=== PATIENT | male | born 1965 | race African-American/Black ===

== ENCOUNTER 2024-10-20 13:54 | Emergency (ER) | payer BC, SELFPAY ==
--- NOTE | ~2024-10-20 | XR_ITS ---
EXAMINATION: XR chest 2V 10/20/2024 14:22 INDICATION: Shortness of breath. Chest pain. PROCEDURE: 2 view chest COMPARISON: No prior studies for comparison. FINDINGS: The lungs are clear. The cardiomediastinal silhouette is within normal limits. There are no pleural effusions. There is no pneumothorax suspected. IMPRESSION: 1: NO ACUTE CARDIOPULMONARY DISEASE. Reviewed, dictated and finalized at location B. [facility]
--- NOTE | 2024-10-20 13:56 | ECG_ITS ---
Test Date: 2024-10-20 14:01:33 Measurements Intervals [place] Rate: 88 P: 45 [place]: 153 QRS: 27 QRSD: 85 T: 45 QT: 346 QTc: 419 Interpretive Statements SINUS RHYTHM POSSIBLE LEFT ATRIAL ENLARGEMENT BASELINE ARTIFACT- I, II, III, AVR, AVL, AVF, V1-V6 BORDERLINE ECG No previous ECG available for comparison Electronically Signed On 10-20-2024 14:02:55 [employer] by Alton Craig D.O.
[2024-10-20 13:57] VITALS: BP 148/92; PULSE 91; RESP 16; TEMP 36.6; O2SAT 100
[2024-10-20 14:20] LABS: Basophils Percent Auto 0.6 % (0.2-1.2); Eosinophils Absolute Auto 0.2 K/mm3 (0-0.3); Eosinophils Percent Auto 2.6 % (0-4.4); Hematocrit 38.2 % (42.0-52.0); Hemoglobin 12.5 g/dL (14.0-18.0); Immature Granulocyte Absolute 0.02 K/mm3 (0.00-0.031); Immature Granulocyte Percent A 0.3 % (0-0.5); Lymphocytes Absolute Auto 2.62 K/mm3 (0.9-3.2); Mean Corpuscular HGB Conc 32.7 g/dl (32-36); Mean Corpuscular Hemoglobin 31.4 pg (26-34); Mean Platelet Volume 10.9 fl (7.4-10.4); Monocytes Absolute Auto 0.5 K/mm3 (0.1-0.6); Neutrophils Absolute Auto 3.6 K/mm3 (1.3-6.7); Neutrophils Percent Auto 51.5 % (45.5-73.1); Platelet Count Result 177 k/mm3 (150-375); Red Blood Count 3.98 M/mm3 (4.6-6.20); Red Cell Distribution Width 12.7 % (11.5-14.5); White Blood Count 6.9 K/mm3 (4.5-10.0)
[2024-10-20 14:33] LABS: INR 0.9; Prothrombin Time 12.7 Seconds (11.1-14.7)
[2024-10-20 14:34] LABS: Partial Thromboplastin Time 26.4 Seconds (22.3-36.8)
[2024-10-20 14:42] LABS: Troponin I < 0.012 ng/mL (0.000-0.034)
[2024-10-20 14:46] LABS: Alanine Aminotransferase 31 U/L (6-50); Albumin Level 4.3 g/dL (3.5-5.1); Alkaline Phosphatase 80 U/L (38-126); Anion Gap 10 mmol/L (4-12); Aspartate Amino Transferase 33 U/L (17-59); Blood Urea Nitrogen 14 mg/dL (9-20); Calcium 9.3 mg/dL (8.4-10.2); Carbon Dioxide 24 mmol/L (22-30); Chloride 103 mmol/L (98-107); Estimated CRCL calculation 81 ml/min; Estimated Glomerular Filt Rate > 60; Glucose 199 mg/dL (65-110); Lipase 494 U/L (23-300); Potassium 4.6 mmol/L (3.4-5.0); Sodium 137 mmol/L (137-145)
--- NOTE | 2024-10-20 15:15 | ED_ITS ---
HPI - SOB/Dyspnea General Chief Complaint: Shortness of Breath/Dyspnea <Katlin Lawrence PA-C - Last Filed: 10/21/24 09:08> Stated Complaint: SOB, CP <Katlin Lawrence PA-C - Last Filed: 10/21/24 09:08> Time Seen by Provider: 10/20/24 15:15 <Katlin Lawrence PA-C - Last Filed: 10/21/24 09:08> Focused HPI: This is a 59 year old male that presents to the ER for left sided chest pain. Ongoing over the last couple of months. Reports associated shortness of breath. Reports exertional dyspnea. Reports he was recently seen at [facility] for this. He has not followed up with his PCP. No known heart problems, he has never had a stress test. Reports family history of CAD. He is a smoker. History of DM, hypertension, hyperlipidemia. GENERAL: Well-appearing, well-nourished, and in no acute distress. HEAD: Normocephalic, atraumatic. CHEST: Clear to auscultation. ?No respiratory distress. HEART: Regular rate and rhythm.? NEURO: ?Alert and oriented x3. Patient screened in triage and initial orders placed.? ?Additional care and disposition to be based upon?diagnostic testing and treatment. <Katlin Lawrence PA-C - Last Filed: 10/21/24 09:08> Source: patient <Leodan Jo PA-C - Last Filed: 10/20/24 19:13> Mode of arrival: ambulatory <DANIEL Soriano Last Filed: 10/20/24 19:13> Limitations: no limitations <DANIEL Soriano Last Filed: 10/20/24 19:13> History of Present Illness HPI Narrative: Agree with MSE note above. Patient reports that the pain comes on as a twinge in the left side of the chest and seems associated with certain movements. He does notice it more when he is waking up in the morning and turns to 1 side or another. States that he does a lot of heavy lifting for his job and will sometimes noticed it while he lifts boxes. Otherwise he does not have any exertional chest pain, nausea, vomiting, syncope or sweats. Denies leg swelling, palpitations, cough or recent illness. <Leodan Jo PA-C - Last Filed: 10/20/24 19:13> Review of Systems 2 Review of Systems: All systems reviewed & are unremarkable except as noted in HPI and below <Katlin Lawrence PA-C - Last Filed: 10/21/24 09:08> PMFSH Past Medical History Medical History: Medical History (Updated 10/21/24 @ 09:07 by Katlin Lawrence PA-C) History of hyperlipidemia History of diabetes mellitus History of hypertension <Katlin Lawrence PA-C - Last Filed: 10/21/24 09:08> Social History Social History: Social History (Updated 10/21/24 @ 09:07 by Katlin Lawrence PA-C) Smoking status: Current every day smoker <Katlin Lawrence PA-C - Last Filed: 10/21/24 09:08> Exam 2 Narrative: GENERAL: Well-appearing, well-nourished, and in no acute distress. HEAD: Normocephalic, atraumatic. EYES: EOMI. CHEST: Clear to auscultation. No respiratory distress. No wheezes rales or rhonchi HEART: Regular rate and rhythm. No murmur heard. Normal peripheral pulses. EXTREMITIES: Normal range of motion. No edema. SKIN: Warm, dry, no rash. NEURO: No focal deficits. Alert and oriented x3. PSYCH: Normal mood and affect <Katlin Lawrence PA-C - Last Filed: 10/21/24 09:08> Course Vital Signs Vital signs: Vital Signs Temperature 97.8 F 10/20/24 13:57 Pulse Rate 91 10/20/24 13:57 Respiratory Rate 16 10/20/24 13:57 Blood Pressure 148/92 H 10/20/24 13:57 Pulse Oximetry 100 10/20/24 13:57 Oxygen Delivery Room Air 10/20/24 13:57 Temperature 97.8 F 10/20/24 13:57 Pulse Rate 79 10/20/24 18:44 Respiratory Rate 15 10/20/24 18:42 Blood Pressure 114/80 10/20/24 18:42 Pulse Oximetry 97 10/20/24 18:42 Oxygen Delivery Room Air 10/20/24 18:44 <Katlin Lawrence PA-C - Last Filed: 10/21/24 09:08> Vital Signs Temperature 97.8 F 10/20/24 13:57 Pulse Rate 91 10/20/24 13:57 Respiratory Rate 16 10/20/24 13:57 Blood Pressure 148/92 H 10/20/24 13:57 Pulse Oximetry 100 10/20/24 13:57 Oxygen Delivery Room Air 10/20/24 13:57 Temperature 97.8 F 10/20/24 13:57 Pulse Rate 79 10/20/24 18:44 Respiratory Rate 15 10/20/24 18:42 Blood Pressure 114/80 10/20/24 18:42 Pulse Oximetry 97 10/20/24 18:42 Oxygen Delivery Room Air 10/20/24 18:44 <Leodan Jo PA-C - Last Filed: 10/20/24 19:13> MDM - SOB/Dyspnea MDM Narrative Medical decision making narrative: This is a 59-year-old male who presents to the ED for chief complaint of chest pain and shortness of breath intermittent over the past month. EKG shows sinus rhythm with no acute ischemic findings. Serial troponins are negative. D-dimer is negative. Lab work overall unremarkable. Lipase is slightly elevated, however he has no correlating symptoms for pancreatitis. Chest x-ray shows no acute findings. Heart score is 3 based on medical history, however the story is very nonsuspicious for ACS. On re-evaluation. Patient is completely asymptomatic. His exam today is more consistent with musculoskeletal based chest pain. Low concern for acute cardiac or pulmonary cause of this chest pain. Encouraged close follow-up with PCP for outpatient chest pain evaluation. Patient will be discharged in stable condition. Supportive measures discussed and return precautions given. Patient is understanding and agreeable with plan for discharge with PCP follow-up. <Leodan Jo PA-C - Last Filed: 10/20/24 19:13> Lab Data Result diagrams: 10/20/24 14:05 10/20/24 14:05 <Katlin Lawrence PA-C - Last Filed: 10/21/24 09:08> Labs: Lab Results 10/20/24 10/20/24 10/20/24 Range/Units 14:05 17:24 18:15 WBC 6.9 (4.5-10.0) K/mm3 RBC 3.98 L (4.6-6.20) M/mm3 Hgb 12.5 L (14.0-18.0) g/dL Hct 38.2 L (42.0-52.0) % MCV 96.0 (80-100) fl MCH 31.4 (26-34) pg MCHC 32.7 (32-36) g/dl RDW 12.7 (11.5-14.5) % Plt Count 177 (150-375) k/mm3 MPV 10.9 H (7.4-10.4) fl Immature Gran % (Auto) 0.3 (0-0.5) % Neut % (Auto) 51.5 (45.5-73.1) % Lymph % (Auto) 38.0 (18.3-44.2) % Irwin % (Auto) 7.0 (2.6-8.5) % Eos % (Auto) 2.6 (0-4.4) % Baso % (Auto) 0.6 (0.2-1.2) % Lymph # (Auto) 2.62 (0.9-3.2) K/mm3 Irwin # (Auto) 0.5 (0.1-0.6) K/mm3 Eos # (Auto) 0.2 (0-0.3) K/mm3 Baso # (Auto) 0.0 (0.0-0.1) K/mm3 Abs Immat Gran (auto) 0.02 (0.00-0.031) K/mm3 Absolute Neuts (auto) 3.6 (1.3-6.7) K/mm3 Absolute Nucleated RBC 0.000 (0.0-0.012) K/mm3 Nucleated RBC % 0.0 (0.0-0.2) % PT 12.7 (11.1-14.7) Seconds INR 0.9 APTT 26.4 (22.3-36.8) Seconds D-Dimer 0.31 (<0.48) ug/mL Sodium 137 (137-145) mmol/L Potassium 4.6 (3.4-5.0) mmol/L Chloride 103 (98-107) mmol/L Carbon Dioxide 24 (22-30) mmol/L Anion Gap 10 (4-12) mmol/L BUN 14 (9-20) mg/dL Creatinine 0.91 (0.7-1.3) mg/dL Estim Creat Clear Calc 81 ml/min Estimated GFR > 60 (59 - ) Glucose 199 H (65-110) mg/dL Calcium 9.3 (8.4-10.2) mg/dL Total Bilirubin 1.0 (0.2-1.3) mg/dL AST 33 (17-59) U/L ALT 31 (6-50) U/L Alkaline Phosphatase 80 (38-126) U/L Troponin I < 0.012 < 0.012 (0.000-0.034) ng/mL Total Protein 8.0 (6.3-8.2) g/dL Albumin 4.3 (3.5-5.1) g/dL Lipase 494 H (23-300) U/L <Katlin Lawrence PA-C - Last Filed: 10/21/24 09:08> Lab Results 10/20/24 10/20/24 10/20/24 Range/Units 14:05 17:24 18:15 WBC 6.9 (4.5-10.0) K/mm3 RBC 3.98 L (4.6-6.20) M/mm3 Hgb 12.5 L (14.0-18.0) g/dL Hct 38.2 L (42.0-52.0) % MCV 96.0 (80-100) fl MCH 31.4 (26-34) pg MCHC 32.7 (32-36) g/dl RDW 12.7 (11.5-14.5) % Plt Count 177 (150-375) k/mm3 MPV 10.9 H (7.4-10.4) fl Immature Gran % (Auto) 0.3 (0-0.5) % Neut % (Auto) 51.5 (45.5-73.1) % Lymph % (Auto) 38.0 (18.3-44.2) % Irwin % (Auto) 7.0 (2.6-8.5) % Eos % (Auto) 2.6 (0-4.4) % Baso % (Auto) 0.6 (0.2-1.2) % Lymph # (Auto) 2.62 (0.9-3.2) K/mm3 [place]win # (Auto) 0.5 (0.1-0.6) K/mm3 Eos # (Auto) 0.2 (0-0.3) K/mm3 Baso # (Auto) 0.0 (0.0-0.1) K/mm3 Abs Immat Gran (auto) 0.02 (0.00-0.031) K/mm3 Absolute Neuts (auto) 3.6 (1.3-6.7) K/mm3 Absolute Nucleated RBC 0.000 (0.0-0.012) K/mm3 Nucleated RBC % 0.0 (0.0-0.2) % PT 12.7 (11.1-14.7) Seconds INR 0.9 APTT 26.4 (22.3-36.8) Seconds D-Dimer 0.31 (<0.48) ug/mL Sodium 137 (137-145) mmol/L Potassium 4.6 (3.4-5.0) mmol/L Chloride 103 (98-107) mmol/L Carbon Dioxide 24 (22-30) mmol/L Anion Gap 10 (4-12) mmol/L BUN 14 (9-20) mg/dL Creatinine 0.91 (0.7-1.3) mg/dL Estim Creat Clear Calc 81 ml/min Estimated GFR > 60 (59 - ) Glucose 199 H (65-110) mg/dL Calcium 9.3 (8.4-10.2) mg/dL Total Bilirubin 1.0 (0.2-1.3) mg/dL AST 33 (17-59) U/L ALT 31 (6-50) U/L Alkaline Phosphatase 80 (38-126) U/L Troponin I < 0.012 < 0.012 (0.000-0.034) ng/mL Total Protein 8.0 (6.3-8.2) g/dL Albumin 4.3 (3.5-5.1) g/dL Lipase 494 H (23-300) U/L <Leodan Jo PA-C - Last Filed: 10/20/24 19:13> Imaging Data Radiologist's impression: ITS Impressions Chest X-Ray 10/20/24 14:22 IMPRESSION: 1: NO ACUTE CARDIOPULMONARY DISEASE. <Katlin Lawrence PA-C - Last Filed: 10/21/24 09:08> Critical Care Time Critical Care Time Critical Care Time: No <Katlin Lawrence PA-C - Last Filed: 10/21/24 09:08> Discharge Plan Discharge Clinical Impression: Costochondral pain <DANIEL Walton Last Filed: 10/21/24 09:08> Patient Disposition: Home, Self-Care <DANIEL Walton Last Filed: 10/21/24 09:08> Condition: Stable <DANIEL Walton Last Filed: 10/21/24 09:08> Instructions: Antibiotic Form <DANIEL Walton Last Filed: 10/21/24 09:08> Additional Instructions: Exam and imaging today are reassuring overall. This is most likely a musculoskeletal cause of pain. Please take Tylenol and ibuprofen every 6 hours as needed for these chest pains. Please follow-up very closely with your PCP regarding chest pain. If you have any new or worsening symptoms please return to the ER for further evaluation. <Katlin Lawrence PA-C - Last Filed: 10/21/24 09:08> Patient Language: Korean <Katlin Lawrence PA-C - Last Filed: 10/21/24 09:08> Follow-up/Referrals: PHYSICIAN NOT ON STAFF,NONSTAFF [Non-Staff] - <Katlin Lawrence PA-C - Last Filed: 10/21/24 09:08> Time of Disposition: 18:56 <DANIEL Walton Last Filed: 10/21/24 09:08> 18:56 <Leodan Jo PA-C - Last Filed: 10/20/24 19:13> Quality HEART score for chest pain patients History: slightly suspicious <Leodan Jo PA-C - Last Filed: 10/20/24 19:13> ECG: normal <DANIEL Soriano Last Filed: 10/20/24 19:13> Age: > 45 and < 65 years <Leodan Jo PA-C - Last Filed: 10/20/24 19:13> Risk factors: > or = to 3 risk factors of atherosclerotic disease <Leodan Jo PA-C - Last Filed: 10/20/24 19:13> Troponin: < or = to 1x normal limit <Leodan Jo PA-C - Last Filed: 10/20/24 19:13> Heart score: 3 <Katlin Lawrence PA-C - Last Filed: 10/21/24 09:08> 3 <Leodan Jo PA-C - Last Filed: 10/20/24 19:13>
--- NOTE | 2024-10-20 17:13 | ECG_ITS ---
Test Date: 2024-10-20 17:16:49 Measurements Intervals [place] Rate: 87 P: 49 [place]: 181 QRS: 22 QRSD: 93 T: 44 QT: 352 QTc: 425 Interpretive Statements SINUS RHYTHM VOLTAGE CRITERIA FOR LVH BORDERLINE ECG Compared to ECG 10/20/2024 14:01:33 No significant changes Electronically Signed On 10-20-2024 18:51:17 [employer] by Alton Craig D.O.
[2024-10-20 17:54] LABS: Troponin I < 0.012 ng/mL (0.000-0.034)
--- OUTSIDE RECORDS SUMMARY | 2024-10-20 17:59 | XMS_ITS | Patient Health Summary ---
Author Organization [facility] [place] Address [address] [place] [id number] Care Team Providers Care Vocational Rehabilitation Counselor Name Role Phone Henry Piedra DO Primary Care Provider [phone] Note from [facility],non-owned Affiliates and Associated Physician Practices is amultiple site organization consisting of ambulatory clinics and hospital sitesin [place], [place], [place] and [place]. This disclosure is being madepursuant to the Care Everywhere program and may not contain all information available regarding this patient. Last updated 18.[facility] [place] Allergies No known active allergies Medications * Be aware that medications may not be up to date on this document. Alwaysverify current medications with the patient. * insulin glargine (LANTUS) pen(Started 09/25/2017) Inject 20 Units subcutaneously daily with dinner 1 refill remaining * simvastatin (ZOCOR) 20 MG tablet(Started 03/16/2018) Take 1 (one) tablet by mouth at bedtime * valsartan (DIOVAN) 80 MG tablet(Started 03/16/2018) Take 1 (one) tablet by mouth once daily * gabapentin (NEURONTIN) 100 MG capsule(Started 03/16/2018) 1 (one) capsule 2 times daily * sildenafil (REVATIO) 20 MG tablet(Started 07/28/2019) Take 1 tablet by mouth as directed Take one (20 mg) to five (100 mg) tablets as needed up to one time daily. 3 refills remaining * polyethylene glycol 3350 (MIRALAX) 17 GM/SCOOP powder(Started 11/13/2021) Take 17 (seventeen) g by mouth once daily * folic acid (Folvite) 1 MG tablet(Started 09/13/2023) Take 1 (one) tablet by mouth once daily 1 refill by 09/12/2024 * thiamine (Vitamin B-1) 100 MG tablet(Started 09/13/2023) Take 1 (one) tablet by mouth once daily 1 refill by 09/12/2024 * qatsjfdcdk-wdedqhxeifrnq-vxmxqyel (Fioricet) 50-325-40 MG tablet(Started 09/13/2023) Take 1 (one) tablet by mouth every 6 hours as needed for Headache or Migraine * pantoprazole EC (Protonix) 40 MG tablet(Started 12/05/2023) Take 1 (one) tablet by mouth 2 times daily * Tresiba FlexTouch 100 UNIT/ML pen(Started 05/28/2024) at bedtime Active Problems Problem Noted Date Diagnosed Date Ventral hernia without obstruction or gangrene 1 Acute pancreatitis, unspecif ied complication status, unspecified pancreatitis type 12/02/2023 Acute pancreatitis without i nfection or necrosis, unspecified pancreatitis type 09/11/2023 Right inguinal hernia 09/03/2019 General weakness 10/06/2017 Alcohol-induced acute pancreatitis 09/20/2017 Elevated blood pressure read ing without diagnosis of hypertension 09/20/2017 Alcohol dependence with other alcohol-induced di sorder 09/20/2017 Resolved Problems Problem Noted Date Diagnosed Date Resolved Date Abdominal pain, generalized 10/06/2017 09/13/2023 Urinary retention 10/06/2017 03/28/2019 Social History Tobacco Use Types Packs/Day Years Used Date Smoking Tobacco: Every Day Cigarettes Smokeless Tobacco: Former Tobacco Cessation:Ready to Q uit: No; Counseling Given: No Alcohol Use Standard Drinks/Week Comments Yes 25 (1 standard drink = 0.6 oz pu re alcohol) happy hour almost every day AUDIT-C Answer Date Recorded Q1: How often do you have a drink containing alc ohol? Never 12/02/2023 Average Number of Drinks Not on file 024 Frequency of Binge Drinking Not on file 10/2023 Overall Financial Resource Strain (CARDIA) Answe r Date Recorded How hard is it for you to pa y for the very basics like food, housing, medical care, and heating? Not very hard 12/03/2023 [employer] [facility] - Occupational Stress Questionnaire Answer Date Recorded Do you feel stress - tense, restless, nervous, or anxious, or unable to sleep at night because your mind is troubled all the time - these days? Not at all 12/03/2023 Hunger Vital Sign Answer Date Recorded Within the past 12 months, y ou worried that your food would run out before you got the money to buy more. Never true 12/03/19 24 Within the past 12 months, t he food you bought just didn't last and you didn't have money to get more. Never true 12/03/2023 PRAPARE - Transportation Answer Date Re corded In the past 12 months, has l ack of transportation kept you from medical appointments or from getting medications? No 10/2023 In the past 12 months, has l ack of transportation kept you from meetings, work, or from getting things needed for daily living? No 12/03/2023 Housing Stability Vital Sign Answer Hilario e Recorded In the last 12 months, was t here a time when you were not able to pay the mortgage or rent on time? No 12/03/2023 Number of Places Lived in the Last Year Not on f ile 12/03/2023 In the last 12 months, was t here a time when you did not have a steady place to sleep or slept in a detention (including now)? No 12/03/2023 Sex and Gender Information Value Date Recorded Sex Assigned at Not on file Gender Identity Not on file Sexual Orientation Not on file Last Filed Vital Signs Vital Sign Reading Time Taken Comments Blood Pressure 131/95 09/26/2024 4:48 AM [employer] WORK[employer] Pulse 83 09/26/2024 4:48 AM [employer] WORK[employer] Temperature 36.3 C (97.4 F) 09/26/2024 4:48 AM [employer] WORK[employer] Respiratory Rate 18 09/26/2024 4:48 AM [employer] M[employer] WORKER Oxygen Saturation 95% 09/26/2024 4:48 AM [employer] WORK[employer] Inhaled Oxygen Concentration - - Weight 94.8 kg (209 lb) 07/13/2024 8:55 AM [employer] WORK[employer] Height 180.3 cm (5' 11 ) 07/13/2024 8:55 AM [employer] WORK[employer] Body Mass Index 29.15 07/13/2024 8:55 AM [employer] WORKER Medical Devices Implanted Type Area Charging Plug Placer Device Identifier Shelf Expiration Date Model / Serial / Lot Mesh Srg Progrip [id number] Slf Fx Rt 70% Implanted:Qty: 1 on 09/03/2019 by Erendira Orozco DO at [facility] Right: Inguinal [employer] 02/28/2022 [id number] / / [id number] Description:RINSED WITH STER ILE WATER. LOT #[id number], EXP 05/23 Plug Srg 1.3in Groin Mfl Nabsb Prfx Implanted:Qty: 1 on 06/28/2024 by Mario Sarah MD at [facility] N/A: Abdomen [employer] 06/28/2027 [id number] / / [id number] Procedures * CARDIAC EKG ORDER(Performed 09/27/2024) * TROPONIN-I HIGH SENSITIVE REFLEX 1HOUR(Performed 09/26/2024) * MAGNESIUM BLOOD(Performed 09/26/2024) * TROPONIN-I HIGH SENSITIVE BASELINE + 1HR(Performed 09/26/2024) * COMPREHENSIVE METABOLIC PANEL(Performed 09/26/2024) * CBC W AUTO DIFFERENTIAL(Performed 09/26/2024) * XR CHEST 1VW(Performed 09/26/2024) Performed for Chest pain, unspecified type * EKG 12-LEAD(Performed 09/26/2024) Performed for Chest pain, unspecified type * GLUCOSE - POINT OF CARE(Performed 06/28/2024) * PATHOLOGY TISSUE EXAM (STL)(Performed 06/28/2024) Performed for Diagnosis unknown * ENDOTRACHEAL TUBE NOTE(Performed 06/28/2024) * WA RPR AA HERNIA 1ST 3-10 CM REDUCIBLE(Performed 06/28/2024) * GLUCOSE - POINT OF CARE(Performed 06/28/2024) * GLUCOSE - POINT OF CARE(Performed 12/05/2023) * GLUCOSE - POINT OF CARE(Performed 12/05/2023) * GLUCOSE - POINT OF CARE(Performed 12/05/2023) * CBC W AUTO DIFFERENTIAL(Performed 12/05/2023) * BASIC METABOLIC PANEL (CALCIUM TOTAL)(Performed 12/05/2023) * GLUCOSE - POINT OF CARE(Performed 12/04/2023) * GLUCOSE - POINT OF CARE(Performed 12/04/2023) * GLUCOSE - POINT OF CARE(Performed 12/04/2023) * PATHOLOGY TISSUE EXAM (STL)(Performed 12/04/2023) Performed for Duodenal ulcer, Gastritis, presence of bleeding unspecified, unspecified chronicity, unspecified gastritis type * HELICOBACTER PYLORI UREASE (STL)(Performed 12/04/2023) Performed for Duodenal ulcer, Gastritis, presence of bleeding unspecified, unspecified chronicity, unspecified gastritis type * WA ED EGD FLEX TRANSORAL DX(Performed 12/04/2023) * GLUCOSE - POINT OF CARE(Performed 12/04/2023) * EGD(Performed 12/04/2023) * GLUCOSE - POINT OF CARE(Performed 12/04/2023) * RENAL FUNCTION PANEL(Performed 12/04/2023) Performed for Nausea and vomiting, unspecified vomiting type, Acute pancreatitis, unspecified complication status, unspecified pancreatitis type (HCC) * CBC W AUTO DIFFERENTIAL(Performed 12/04/2023) Performed for Nausea and vomiting, unspecified vomiting type, Acute pancreatitis, unspecified complication status, unspecified pancreatitis type (HCC) * GLUCOSE - POINT OF CARE(Performed 12/03/2023) * CARDIAC EKG ORDER(Performed 12/03/2023) * GLUCOSE - POINT OF CARE(Performed 12/03/2023) * GLUCOSE - POINT OF CARE(Performed 12/03/2023) * GLUCOSE - POINT OF CARE(Performed 12/03/2023) * MAGNESIUM BLOOD(Performed 12/03/2023) Performed for Acute pancreatitis, unspecified complication status, unspecified pancreatitis type (HCC) * AMYLASE BLOOD(Performed 12/03/2023) Performed for Acute pancreatitis, unspecified complication status, unspecified pancreatitis type (HCC) * LIPASE BLOOD(Performed 12/03/2023) Performed for Acute pancreatitis, unspecified complication status, unspecified pancreatitis type (HCC) * RENAL FUNCTION PANEL(Performed 12/03/2023) * CBC W AUTO DIFFERENTIAL(Performed 12/03/2023) * GLUCOSE - POINT OF CARE(Performed 12/02/2023) * CT ABDOMEN PELVIS W CONTRAST(Performed 12/02/2023) Performed for Nausea and vomiting, unspecified vomiting type * HYDROXYBUTYRATE BETA(Performed 12/02/2023) * LIPASE BLOOD(Performed 12/02/2023) * CBC W AUTO DIFFERENTIAL(Performed 12/02/2023) * COMPREHENSIVE METABOLIC PANEL(Performed 12/02/2023) * EKG 12-LEAD(Performed 12/02/2023) Performed for Nausea and vomiting, unspecified vomiting type * CARDIAC RHYTHM STRIP ORDER(Performed 09/15/2023) * GLUCOSE - POINT OF CARE(Performed 09/13/2023) * GLUCOSE - POINT OF CARE(Performed 09/13/2023) * CBC W/O DIFFERENTIAL(Performed 09/13/2023) * GLUCOSE - POINT OF CARE(Performed 09/13/2023) * GLUCOSE - POINT OF CARE(Performed 09/12/2023) * CARDIAC EKG ORDER(Performed 09/12/2023) * GLUCOSE - POINT OF CARE(Performed 09/12/2023) * GLUCOSE - POINT OF CARE(Performed 09/12/2023) * BASIC METABOLIC PANEL (CALCIUM TOTAL)(Performed 09/12/2023) * CBC W/O DIFFERENTIAL(Performed 09/12/2023) * CARDIAC EKG ORDER(Performed 09/12/2023) * GLUCOSE - POINT OF CARE(Performed 09/11/2023) * GLUCOSE - POINT OF CARE(Performed 09/11/2023) * GLUCOSE - POINT OF CARE(Performed 09/11/2023) * GLUCOSE - POINT OF CARE(Performed 09/11/2023) * CT HEAD WO CONTRAST(Performed 09/11/2023) Performed for Acute intractable headache, unspecified headache type * HEMOGLOBIN A1C(Performed 09/11/2023) * LIPASE BLOOD(Performed 09/10/2023) * TROPONIN-I HIGH SENSITIVE REFLEX 1HOUR(Performed 09/10/2023) * CT ABDOMEN PELVIS W CONTRAST(Performed 09/10/2023) Performed for Abdominal pain, generalized * DIFFERENTIAL MANUAL(Performed 09/10/2023) * URINE MICROSCOPIC ONLY REFLEX TO CULTURE(Performed 09/10/2023) * TSH REFLEX FREE T4(Performed 09/10/2023) * URINALYSIS REFLEX MICROSCOPIC REFLEX CULTURE(Performed 09/10/2023) * TROPONIN-I HIGH SENSITIVE BASELINE + 1HR(Performed 09/10/2023) * LIPASE BLOOD(Performed 09/10/2023) * COMPREHENSIVE METABOLIC PANEL(Performed 09/10/2023) * CBC W AUTO DIFFERENTIAL(Performed 09/10/2023) * EKG 12-LEAD(Performed 09/10/2023) Performed for Palpitations * XR CHEST 1VW(Performed 09/10/2023) Performed for Palpitations * TROPONIN I(Performed 11/13/2021) * CT ABDOMEN PELVIS W CONTRAST(Performed 11/13/2021) Performed for Abdominal pain, generalized * URINALYSIS REFLEX MICROSCOPIC REFLEX CULTURE(Performed 11/13/2021) * HIV-1 HIV-2 ANTIBODY + HIV P24 AG PANEL(Performed 11/13/2021) * HEPATITIS C ANTIBODY(Performed 11/13/2021) * TROPONIN I(Performed 11/13/2021) * LACTIC ACID BLOOD REFLEX TO REPEAT(Performed 11/13/2021) * LIPASE BLOOD(Performed 11/13/2021) * COMPREHENSIVE METABOLIC PANEL(Performed 11/13/2021) * CBC W AUTO DIFFERENTIAL(Performed 11/13/2021) * XR CHEST 1VW(Performed 11/13/2021) Performed for Abdominal pain, generalized * EKG 12-LEAD(Performed 11/13/2021) Performed for Abdominal pain, generalized * PROSTATE SPECIFIC ANTIGEN DIAGNOSTIC(Performed 02/14/2020) Performed for Prostate cancer (HCC) * GLUCOSE - POINT OF CARE(Performed 09/03/2019) * ENDOTRACHEAL TUBE NOTE(Performed 09/03/2019) * ROBOTIC ASSISTED REPAIR INGUINAL HERNIA(Performed 09/03/2019) * EKG 12-LEAD(Performed 09/03/2019) Performed for Preop examination * BASIC METABOLIC PANEL (CALCIUM TOTAL)(Performed 09/03/2019) Performed for Preop examination * PROSTATE SPECIFIC ANTIGEN DIAGNOSTIC(Performed 07/28/2019) Performed for Prostate cancer (HCC) * GLUCOSE - POINT OF CARE(Performed 03/28/2019) * GLUCOSE - POINT OF CARE(Performed 03/27/2019) * GLUCOSE - POINT OF CARE(Performed 03/27/2019) * GLUCOSE - POINT OF CARE(Performed 03/27/2019) * GLUCOSE - POINT OF CARE(Performed 03/26/2019) * GLUCOSE - POINT OF CARE(Performed 03/26/2019) * GLUCOSE - POINT OF CARE(Performed 03/26/2019) * GLUCOSE - POINT OF CARE(Performed 03/26/2019) * AMYLASE BLOOD(Performed 03/26/2019) * LIPASE BLOOD(Performed 03/26/2019) * GLUCOSE - POINT OF CARE(Performed 03/25/2019) * GLUCOSE - POINT OF CARE(Performed 03/25/2019) * GLUCOSE - POINT OF CARE(Performed 03/25/2019) * HEMOGLOBIN A1C(Performed 03/25/2019) * LIPASE BLOOD(Performed 03/25/2019) * COMPREHENSIVE METABOLIC PANEL(Performed 03/25/2019) * CBC W AUTO DIFFERENTIAL(Performed 03/25/2019) * GLUCOSE - POINT OF CARE(Performed 03/24/2019) * GLUCOSE - POINT OF CARE(Performed 03/24/2019) * LIPASE BLOOD(Performed 03/24/2019) * COMPREHENSIVE METABOLIC PANEL(Performed 03/24/2019) * CBC W AUTO DIFFERENTIAL(Performed 03/24/2019) * PROSTATE SPECIFIC ANTIGEN DIAGNOSTIC(Performed 01/21/2019) Performed for Prostate cancer (HCC) * PROSTATE SPECIFIC ANTIGEN DIAGNOSTIC(Performed 10/28/2018) Performed for Prostate cancer (HCC) * TISSUE 12 SPECIMENS(Performed 02/26/2018) Performed for Elevated PSA * SUSCEPTIBILITY RESULT RFLXD(Performed 02/12/2018) Performed for Elevated PSA * CULTURE FLUOROQUINOLONE RESISTANCE(Performed 02/12/2018) Performed for Elevated PSA * BLADDER SCAN - POINT OF CARE (AMB)(Performed 12/29/2017) Performed for Urinary retention * PROSTATE SPECIFIC ANTIGEN DIAGNOSTIC(Performed 12/29/2017) Performed for Elevated PSA * GLUCOSE - POINT OF CARE(Performed 10/10/2017) * GLUCOSE - POINT OF CARE(Performed 10/10/2017) * GLUCOSE - POINT OF CARE(Performed 10/10/2017) * GLUCOSE - POINT OF CARE(Performed 10/09/2017) * GLUCOSE - POINT OF CARE(Performed 10/09/2017) * GLUCOSE - POINT OF CARE(Performed 10/09/2017) * GLUCOSE - POINT OF CARE(Performed 10/09/2017) * GLUCOSE - POINT OF CARE(Performed 10/09/2017) * CBC W AUTO DIFFERENTIAL(Performed 10/09/2017) * BASIC METABOLIC PANEL (CALCIUM TOTAL)(Performed 10/09/2017) * GLUCOSE - POINT OF CARE(Performed 10/08/2017) * GLUCOSE - POINT OF CARE(Performed 10/08/2017) * GLUCOSE - POINT OF CARE(Performed 10/08/2017) * INFLUENZA A+B+RSV PCR PANEL(Performed 10/08/2017) * GLUCOSE - POINT OF CARE(Performed 10/08/2017) * LIPASE BLOOD(Performed 10/08/2017) * AMYLASE BLOOD(Performed 10/08/2017) * CARDIAC EKG ORDER(Performed 10/07/2017) * GLUCOSE - POINT OF CARE(Performed 10/07/2017) * GLUCOSE - POINT OF CARE(Performed 10/07/2017) * PROSTATE SPECIFIC ANTIGEN DIAGNOSTIC(Performed 10/07/2017) * CBC W AUTO DIFFERENTIAL(Performed 10/07/2017) * BASIC METABOLIC PANEL (CALCIUM TOTAL)(Performed 10/07/2017) * GLUCOSE - POINT OF CARE(Performed 10/06/2017) * URINE MICROSCOPIC ONLY REFLEX TO CULTURE(Performed 10/06/2017) * URINALYSIS REFLEX MICROSCOPIC REFLEX CULTURE(Performed 10/06/2017) * CT ABDOMEN PELVIS W CONTRAST(Performed 10/06/2017) Performed for General weakness, Abdominal pain, generalized * XR CHEST 1VW PORTABLE(Performed 10/05/2017) Performed for General weakness * EKG 12-LEAD(Performed 10/05/2017) Performed for General weakness * PT PTT PANEL(Performed 10/05/2017) * TROPONIN I(Performed 10/05/2017) * PHOSPHORUS BLOOD(Performed 10/05/2017) * MAGNESIUM BLOOD(Performed 10/05/2017) * ALCOHOL ETHYL BLOOD(Performed 10/05/2017) * LIPASE BLOOD(Performed 10/05/2017) * COMPREHENSIVE METABOLIC PANEL(Performed 10/05/2017) * CBC W AUTO DIFFERENTIAL(Performed 10/05/2017) * CARDIAC EKG ORDER(Performed 09/26/2017) * GLUCOSE - POINT OF CARE(Performed 09/25/2017) * BASIC METABOLIC PANEL (CALCIUM TOTAL)(Performed 09/25/2017) * AMYLASE BLOOD(Performed 09/25/2017) * LIPASE BLOOD(Performed 09/25/2017) * GLUCOSE - POINT OF CARE(Performed 09/24/2017) * GLUCOSE - POINT OF CARE(Performed 09/24/2017) * GLUCOSE - POINT OF CARE(Performed 09/24/2017) * GLUCOSE - POINT OF CARE(Performed 09/23/2017) * GLUCOSE - POINT OF CARE(Performed 09/23/2017) * GLUCOSE - POINT OF CARE(Performed 09/23/2017) * GLUCOSE - POINT OF CARE(Performed 09/23/2017) * XR ABD OBSTRUCTION SERIES 2VW(Performed 09/23/2017) Performed for Alcohol-induced acute pancreatitis, unspecified complication status (HCC) * GLUCOSE - POINT OF CARE(Performed 09/23/2017) * GLUCOSE - POINT OF CARE(Performed 09/23/2017) * LIPID PROFILE(Performed 09/23/2017) * HEMOGLOBIN A1C(Performed 09/23/2017) * GLUCOSE - POINT OF CARE(Performed 09/22/2017) * GLUCOSE - POINT OF CARE(Performed 09/22/2017) * GLUCOSE - POINT OF CARE(Performed 09/22/2017) * US ABDOMEN LIMITED(Performed 09/22/2017) Performed for Alcohol-induced acute pancreatitis, unspecified complication status (HCC) * DIFFERENTIAL MANUAL(Performed 09/21/2017) * LIPASE BLOOD(Performed 09/21/2017) Performed for Alcohol-induced acute pancreatitis, unspecified complication status (HCC) * COMPREHENSIVE METABOLIC PANEL(Performed 09/21/2017) Performed for Alcohol-induced acute pancreatitis, unspecified complication status (HCC) * CBC W AUTO DIFFERENTIAL(Performed 09/21/2017) * XR ABD OBSTRUCTION SERIES 2VW(Performed 09/20/2017) Performed for Alcohol-induced acute pancreatitis, unspecified complication status (HCC) * TROPONIN I(Performed 09/20/2017) * TROPONIN I(Performed 09/20/2017) * LIPASE BLOOD(Performed 09/19/2017) * COMPREHENSIVE METABOLIC PANEL(Performed 09/19/2017) * TROPONIN I(Performed 09/19/2017) * XR CHEST 2VW(Performed 09/19/2017) Performed for Chest pain, unspecified type * DIFFERENTIAL MANUAL(Performed 09/19/2017) * CBC W AUTO DIFFERENTIAL(Performed 09/19/2017) * EKG 12-LEAD(Performed 09/19/2017) Performed for Chest pain, unspecified type * CBC W AUTO DIFFERENTIAL(Performed 01/08/2017) * BASIC METABOLIC PANEL (CALCIUM TOTAL)(Performed 01/08/2017) * AMYLASE BLOOD(Performed 01/08/2017) * LIPASE BLOOD(Performed 01/08/2017) * URINALYSIS REFLEX MICROSCOPIC REFLEX CULTURE(Performed 01/07/2017) * CT ABDOMEN PELVIS W CONTRAST(Performed 01/07/2017) Performed for Acute pancreatitis, unspecified complication status, unspecified pancreatitis type (HCC) * LIPASE BLOOD(Performed 01/07/2017) * COMPREHENSIVE METABOLIC PANEL(Performed 01/07/2017) * CBC W AUTO DIFFERENTIAL(Performed 01/07/2017) * CARDIAC EKG ORDER(Performed 10/02/2016) * INFLUENZA A+B ANTIGEN RAPID(Performed 10/01/2016) * COMPREHENSIVE METABOLIC PANEL(Performed 10/01/2016) * CBC W AUTO DIFFERENTIAL(Performed 10/01/2016) * TROPONIN I(Performed 10/01/2016) * XR CHEST 1VW PORTABLE(Performed 10/01/2016) Performed for Other chest pain * EKG 12-LEAD(Performed 10/01/2016) Performed for Other chest pain * US ABDOMEN LIMITED(Performed 01/30/2015) Performed for Abdominal pain, epigastric * LIPID PROFILE(Performed 01/30/2015) * TROPONIN I(Performed 01/29/2015) * URINALYSIS REFLEX MICROSCOPIC REFLEX CULTURE(Performed 01/29/2015) * TROPONIN I(Performed 01/28/2015) * CT ABDOMEN PELVIS W CONTRAST(Performed 01/28/2015) Performed for Acute pancreatitis, unspecified pancreatitis type * D-DIMER(Performed 01/28/2015) * AMYLASE BLOOD(Performed 01/28/2015) * DIFFERENTIAL MANUAL(Performed 01/28/2015) * LIPASE BLOOD(Performed 01/28/2015) * TROPONIN I(Performed 01/28/2015) * COMPREHENSIVE METABOLIC PANEL(Performed 01/28/2015) * CBC W AUTO DIFFERENTIAL(Performed 01/28/2015) * EKG 12-LEAD(Performed 01/28/2015) Performed for Abdominal pain, epigastric * POLYSOMNOGRAPHY 4 OR MORE PARAMETERS WITH CPAP(Performed 11/01/2013) Performed for Other Malaise And Fatigue, Other Dyspnea And Respiratory Abnormality * CT ABDOMEN PELVIS W CONTRAST(Performed 10/01/2010) Performed for Diarrhea * CULTURE STOOL PANEL(Performed 10/01/2010) * WBC SMEAR(Performed 10/01/2010) * O+P ANTIGEN PANEL(Performed 10/01/2010) * C DIFFICILE TOXIN A+B(Performed 10/01/2010) * LACTIC ACID BLOOD(Performed 10/01/2010) * XR ABD OBSTR SERIES W CHEST 1VW(Performed 10/01/2010) Performed for Diarrhea * LIPASE BLOOD(Performed 10/01/2010) * COMPREHENSIVE METABOLIC PANEL(Performed 10/01/2010) * CBC W AUTO DIFFERENTIAL(Performed 10/01/2010) Results * CARDIAC EKG ORDER (09/27/2024 8:01 PM [employer]) Only the most recent of7 resultswithin the time period is included. Narrative 09/27/2024 8:01 PM [employer] Ordered by an unspecified provider. Scanned Document CARDIAC SERVICES ORD ERABLES * TROPONIN-I HIGH SENSITIVE REFLEX 1HOUR (09/26/2024 2:32 AM [employer] WORK[employer]) Only the most recent of2 resultswithin the time period is included. Troponin I High Sensitive 13 <=35 ng/L 09/26/2024 3:12 AM [employer] [facility] Delta Troponin I HS 1 <6 ng/L 09/26/2024 3:12 AM [employer] [facility] Blood BLOOD SPECIMEN / Unknown Venipuncture / Unknown 09/26/2024 2:32 AM [employer] 09/26/2024 2:46 AM [email or web address] LAB - CHEMISTRY ORDE [employer] Performing Organization Address [facility] Co de Phone Number [facility] [address] [place] [phone] * TROPONIN-I HIGH SENSITIVE BASELINE + 1HR (09/26/2024 1:18 AM [employer] WORK[employer]) Only the most recent of2 resultswithin the time period is included. Pathologist [facility] Troponin I High Sensitive 12 <=35 ng/L 09/26/2024 1:52 AM [employer] [facility] Blood BLOOD SPECIMEN / Unknown Venipuncture / Unknown 09/26/2024 1:18 AM [employer] WORK[employer] 09/26/2024 1:27 AM [email or web address] LAB - CHEMISTRY ORDE [employer] Performing Organization Address [facility]/ZIP Co de Phone Number [facility] [id number] [place] [phone] * (ABNORMAL) CBC W AUTO DIFFERENTIAL (09/26/2024 1:18 AM [employer] WORK[employer]) Only the most recent of19 resultswithin the time period is included. WBC 6.7 4.0 - 10.7 x10E9/L 09/26/2024 1:30 AM [facility] RBC Count 4.17(L) 4.30 - 5.80 x10E12/L 09/26/2024 1:30 AM [employer] [facility] Hemoglobin 13.2(L) 13.3 - 17.5 g/dL 09/26/2024 1:30 AM [employer] [facility] Hematocrit 40.7 38.7 - 51.1 % 09/26/2024 1:30 AM [facility] MCV 97.6 80.0 - 98.0 fL 09/26/2024 1:30 AM [facility] MCH 31.7 26.7 - 33.6 pg 09/26/2024 1:30 AM [facility] MCHC 32.4 31.7 - 36.3 g/dL 09/26/2024 1:30 AM [facility] RDW-CV 12.1 11.3 - 14.8 % 09/26/2024 1:30 AM [facility] Platelet Count 195 150 - 420 x10E9/L 09/26/2024 1:30 AM [facility] MPV 10.8 7.8 - 11.4 fL 09/26/2024 1:30 AM [facility] Neutrophil % 57.0 41.0 - 74.0 % 09/26/2024 1:30 AM [facility] Lymphocyte % 32.4 17.0 - 47.0 % 09/26/2024 1:30 AM [facility] Monocyte % 6.0 3.0 - 11.0 % 09/26/2024 1:30 AM [facility] Eosinophil % 3.9 0.0 - 7.0 % 09/26/2024 1:30 AM [facility] Basophil % 0.6 0.0 - 1.6 % 09/26/2024 1:30 AM [facility] Immature Granulocytes % 0.1 0.0 - 1.0 % 09/26/2024 1:30 AM [facility] Neutrophil Absolute 3.81 1.60 - 7.50 x10E9/L 09/26/2024 1:30 AM [facility] Lymphocyte Absolute 2.17 1.00 - 4.40 x10E9/L 09/26/2024 1:30 AM [facility] Monocyte Absolute 0.40 0.15 - 1.00 x10E9/L 09/26/2024 1:30 AM [facility] Eosinophil Absolute 0.26 0.00 - 0.60 x10E9/L 09/26/2024 1:30 AM [facility] Basophil Absolute 0.04 0.00 - 0.13 x10E9/L 09/26/2024 1:30 AM [facility] Blood BLOOD SPECIMEN / Unknown Venipuncture / Unknown 09/26/2024 1:18 AM [employer] 09/26/2024 1:27 AM [facility] Starla Foote PA-C LAB - HEMATOLOGY ORD ERABLES [facility] [address] [place] [address] * (ABNORMAL) COMPREHENSIVE METABOLIC PANEL (09/26/2024 1:18 AM [facility]) Only the most recent of13 resultswithin the time period is included. Glucose 277(H) 70 - 99 mg/dL 09/26/2024 2:02 AM [facility] Sodium 138 136 - 145 mmol/L 09/26/2024 2:02 AM [facility] Potassium 4.4 3.5 - 5.1 mmol/L 09/26/2024 2:02 AM [facility] Chloride 105 98 - 107 mmol/L 09/26/2024 2:02 AM [facility] CO2 21(L) 22 - 29 mmol/L 09/26/2024 2:02 AM [facility] Calcium 9.3 8.4 - 10.4 mg/dL 09/26/2024 2:02 AM [facility] Anion Gap 12 6 - 16 mmol/L 09/26/2024 2:02 AM [facility] BUN 15 7 - 26 mg/dL 09/26/2024 2:02 AM [facility] Creatinine 1.17 0.72 - 1.25 mg/dL 09/26/2024 2:02 AM [facility] Alkaline Phosphatase 89 40 - 150 U/L 09/26/2024 2:02 AM [facility] ALT 27 0 - 55 U/L 09/26/2024 2:02 AM [facility] AST 29 5 - 34 U/L 09/26/2024 2:02 AM [facility] Protein Total 7.4 6.4 - 8.3 gm/dL 09/26/2024 2:02 AM [facility] Albumin 3.9 3.4 - 5.0 gm/dL 09/26/2024 2:02 AM [employer] [facility] Bilirubin Total 0.4 0.2 - 1.2 mg/dL 09/26/2024 2:02 AM [employer] [facility] eGFR by CKD-EPI 71(L) >=90 mL/min/1.7 3 m2 09/26/2024 2:02 AM [employer] [facility] Blood BLOOD SPECIMEN / Unknown Venipuncture / Unknown 09/26/2024 1:18 AM [employer] 09/26/2024 1:27 AM [employer] LAB - CHEMISTRY ORDE [employer] Performing Organization Address City/[facility]/ZIP Co de Phone Number [facility] [address] [place] [address] * MAGNESIUM BLOOD (09/26/2024 1:18 AM [employer]) Only the most recent of3 resultswithin the time period is included. Magnesium 1.9 1.6 - 2.6 mg/dL 09/26/2024 2:02 AM [facility] Blood BLOOD SPECIMEN / Unknown Venipuncture / Unknown 09/26/2024 1:18 AM [employer] 09/26/2024 1:27 AM [employer] LAB - CHEMISTRY ORDE [employer] Performing Organization Address [facility] Co de Phone Number [facility] [address] [place], [place] [id number] * XR CHEST PA OR AP (1VW ONLY, THIS IS NOT PORTABLE) (09/26/2024 12:52 AM [employer]) Only the most recent of3 resultswithin the time period is included. Anatomical Region Laterality Modality Chest Computed Radiogr aphy 09/26/2024 9:34 AM [employer] Impressions 09/26/2024 9:35 AM [employer] IMPRESSION: Hypoventilatory changes in the lung bases, without confluency. > Interpreting Provider: Ross Griffith MD on 09/26/2024 9:35 AM Narrative 09/26/2024 9:35 AM [employer] PROCEDURE: XR CHEST 1VW, DATE/TIME OF EXAM: 09/26/2024 12:52 AM, LOCATION [facility] INDICATION: R07.9: Chest pain, unspecified ADDITIONAL CLINICAL INFORMATION: Ordering Provider Reason For Exam: Technologist Note: Additional: COMPARISON: 09/10/2023 SINGLE VIEW PORTABLE CHEST INDICATION: 59 year old Male with left-sided chest pain radiating to the left arm for the past 3 weeks, worse today. Left arm weakness. FINDINGS: A single view portable examination of the chest, 0052 hours, is reviewed in comparison to a prior study of 09/10/2023. There are minimal hypoventilatory markings in the lung bases. I do not see any confluency, pneumothorax or pleural effusion. The heart size and pulmonary vasculature are normal. There is no free peritoneal air. I do not see any bony abnormalities. Procedure Note Ross Griffith MD - 09/26/2024 PROCEDURE: XR CHEST 1VW, DATE/TIME OF EXAM: 09/26/2024 12:52 AM, LOCATION [facility] INDICATION: R07.9: Chest pain, unspecified ADDITIONAL CLINICAL INFORMATION: Ordering Provider Reason For Exam: Technologist Note: Additional: COMPARISON: 09/10/2023 SINGLE VIEW PORTABLE CHEST INDICATION: 59 year old Male with left-sided chest pain radiating to the left arm for the past 3 weeks, worse today. Left arm weakness. FINDINGS: A single view portable examination of the chest, 0052 hours,is reviewed in comparison to a prior study of 09/10/2023. There are minimal hypoventilatory markings in the lung bases. I do notsee any confluency, pneumothorax or pleural effusion. The heart size and pulmonary vasculature are normal. There is no free peritoneal air. I do not see any bony abnormalities. IMPRESSION: Hypoventilatory changes in the lung bases, withoutconfluency. > Interpreting Provider: Ross Griffith MD on 09/26/2024 9:35 AM Starla Alos PA-C DIAGNOSTIC IMAGING O RDERABLES * EKG 12-LEAD (09/26/2024 12:28 AM [employer]) Only the most recent of9 resultswithin the time period is included. Ventricular Rate 86 BPM [facility] Atrial Rate 86 BPM [facility] P-R Interval 166 ms [facility] QRS Duration ms 86 ms [facility] Q-T Interval ms 362 ms [facility] QTC Calculation (Bezet) 433 ms [facility] M[facility] Calculated P [place] 61 degrees [facility] Calculated R [place] 25 degrees [facility] Calculated T [place] 43 degrees [facility] Interpretation EKG Normal sinus rhythm Normal ECG When compared with ECG of 02-DEC-2023 13:45, Nonspecific T wave abnormality , improved in Lateral leads Confirmed by NELSON SHRESTHA MD ([id number]) on 09/27/2024 9:32:03 AM [facility] MUSE 09/26/2024 12:2 8 AM [employer] 09/27/2024 9:32 AM [employer] Mark Li MD ECG ORDERABLES Performing Organization Address City/[facility]/ZIP Co de Phone Number [facility] * (ABNORMAL) GLUCOSE - POINT OF CARE (06/28/2024 9:02 AM CDT) Only the most recent of67 resultswithin the time period is included. Pathologist [facility] Glucose WB/POC 133(H) 70 - 99 mg/dL 06/28/2024 9:03 AM CDT [facility] Specimen Type Cap Fingerstick 2023 9:03 AM CDT [facility] Blood BLOOD SPECIMEN / Unknown 06/28/2024 9:02 AM CDT 06/28/2024 9:03 AM CDT Mario Sarah MD LAB - POINT OF C ARE ORDERABLES [facility] [address] [place] [address] * PATHOLOGY TISSUE EXAM (STL) (06/28/2024 8:40 AM CDT) Only the most recent of2 resultswithin the time period is included. Pathologist [facility] Case Report Surgical Pathology Report Case: [id number] Authorizing Provider: Mario Sarah MD Collected: 06/28/2024 08:40 AM Ordering Location: [facility] Received: 06/28/2024 10:47 AM - Perioperative Surgery Pathologist: Jenifer Vieyra MD Specimen: Hernia Sac, HERNIA SAC 06/30/2024 3:55 PM CDT [facility] Final Diagnosis Soft tissue, hernia sac, excision: -- Fibroadipose tissue with inflammation consistent with hernia sac 06/30/2024 3:55 PM CDT [facility] Gross Description Received in formalin in a single container labeled Willy Etienne hernia sac, is a 1.5 x 1.5 x 0.2 cm purple-romero, fragment of tissue. The specimen is sectioned and entirely submitted in cassette A1. CH/tc 06/30/2024 3:55 PM CDT [facility] Microscopic Description Microscopic evaluation supports the diagnosis. 06/30/2024 3:55 PM CDT [facility] Disclaimer All histochemical and/or immunohistochemical results are interpreted with controls that demonstrate appropriate staining reactions before reporting results. Note on use of immunocytochemistry reagents: This test was developed and its performance characteristic determined by [facility], Department of Laboratory Medicine. It has not been cleared or approved by the U.S. Food and Drug Administration (FDA). The FDA has determined that such clearance or approval is not necessary. The test is used for clinical purpose. It should not be regarded as investigational or for research. This laboratory is certified to perform high complexity testing. The performance characteristics of the IHC/ROBERTO assays have been validated on formalin-fixed paraffin embedded tissues only. The assays have not been validated on decalcified tissues. Results should be interpreted with caution. 06/30/2024 3:55 PM CDT [facility] Embedded Images 06/30/2024 3:55 PM T [facility] Pathology/Cytolo gy HERNIA SAC / Unknown 06/28/2024 8:40 AM CDT 06/28/2024 10:47 AM CDT Mario Sarah MD LAB - PATHOLOGY/ CYTOLOGY ORDERABLES [facility] [address] [place] [address] * ETT LINE PERFORMABLE (06/28/2024 8:24 AM CDT) Narrative Barry Fisher APRN-CRNA - 06/28/2024 8:24 AM CDT Barry Fisher APRN-CRNA 06/28/2024 8:25 AM Endotracheal Tube Placement: Patient Location: OR. Intubation Event Date/Time: 06/28/2024 8:18 AM Procedure: intubation ([id number]) Procedure Section: Sedation: under general anesthesia. Indications for Airway Management: anesthesia Induction: standard IV Patient Position: supine Mask Ventilation: easy. Blade Type: [place] Blade Size: 2 Laryngoscopy View: grade 2 (partial cords) Intubation Adjuncts: cricoid pressure and stylet Placement: oral Tube type: cuff - inflated Tube Size (MM): 8 Depth of Insertion (CM): 22 Measured From: teeth Cuff volume (mL): 8 Cuff Inflated With: air Number of Attempts: 1. Placement Verified By: direct visualization, bilateral breath sounds and CO2 monitor Tube secured with: adhesive tape. Dentition unchanged? Yes Difficult Airway? No. Procedure Start Time: 06/28/2024 8:18 AM. Staff Section Anesthesia Provider: Barry Fisher APRN-CRNA, Performed the procedure Magdy Thomson MD GENERAL ANESTHESIA O RDERABLES * (ABNORMAL) BASIC METABOLIC PANEL (CALCIUM TOTAL) (12/05/2023 2:52 AM CDT) Only the most recent of7 resultswithin the time period is included. Glucose 174(H) 70 - 105 mg/dL 12/05/2023 3:28 AM CDT [facility] Sodium 137 136 - 145 mmol/L 12/05/2023 3:28 AM CDT [facility] Potassium 3.5 3.5 - 5.1 mmol/L 12/05/2023 3:28 AM CDT [facility] Chloride 107 98 - 107 mmol/L 12/05/2023 3:28 AM CDT [facility] CO2 25 22 - 29 mmol/L 12/05/2023 3:28 AM CDT [facility] Calcium 7.9(L) 8.4 - 10.4 mg/dL 12/05/2023 3:28 AM CDT [facility] Anion Gap 5(L) 6 - 16 mmol/L 12/05/2023 3:28 AM CDT [facility] BUN 9 7 - 26 mg/dL 12/05/2023 3:28 AM CDT [facility] Creatinine 0.78 0.72 - 1.25 mg/dL 12/05/2023 3:28 AM CDT [facility] eGFR by CKD-EPI >90 >=90 mL/min/1.7 3 m2 12/05/2023 3:28 AM CDT [facility] Blood BLOOD SPECIMEN / Unknown Venipuncture / Unknown 12/05/2023 2:52 AM CDT 12/05/2023 3:04 AM CDT Ayaka Peng MD LAB - CHEMISTRY NAHID SHOOK Performing Organization Address [facility] de Phone Number [facility] [address] [place] [address] * HELICOBACTER PYLORI UREASE (STL) (12/04/2023 1:37 PM CDT) Helicobacter pylori Urease Initial Negative Negative 12/05/2023 2:25 PM CDT [facility] Helicobacter pylori Urease Final Negative Negative 12/05/2023 2:25 PM CDT [facility] Microbiology GASTRIC ANTRAL BIOPSY SPECIMEN / Unknown Collection / Unknown 12/04/2023 1:37 PM CDT 12/04/2023 5:56 PM CDT Brad Walker MD LAB - MICROBIOLOGY O RDERABLES Performing Organization Address City/[facility] Co de Phone Number [facility] [address] [place] [address] * EGD (12/04/2023 8:04 AM CDT) Report Endoscopy POC _ Patient Name: Willy Etienne Procedure Date: 12/04/2023 8:04 AM Date of : 1965 Admit Type: Inpatient Age: 58 Gender: Male Attending MD: Brad Walker MD, [id number] _ Procedure: Upper GI endoscopy Indications: Upper abdominal pain, Abnormal CT of the GI tract Providers: Brad Walker MD (Doctor) Referring MD: Henry Piedra DO (Referring MD) Medicines: Monitored Anesthesia Care Complications: No immediate complications. _ Estimated Blood Loss: Estimated blood loss was minimal. Procedure: Pre-Anesthesia Assessment: - Prior to the procedure, a History and Physical was performed, and patient medications and allergies were reviewed. The patient is competent. The risks and benefits of the procedure and the sedation options and risks were discussed with the patient. All questions were answered and informed consent was obtained. Patient identification and proposed procedure were verified by the physician, the nurse and the pediatric social worker in the procedure room. Mental Status Examination: alert and oriented. Airway Examination: normal oropharyngeal airway and neck mobility. Respiratory Examination: clear to auscultation. CV Examination: normal. Prophylactic Antibiotics: The patient does not require prophylactic antibiotics. Prior Anticoagulants: The patient has taken no anticoagulant or antiplatelet agents. ASA Grade Assessment: II - A patient with mild systemic disease. After reviewing the risks and benefits, the patient was deemed in satisfactory condition to undergo the procedure. The anesthesia plan was to use deep sedation / analgesia. Immediately prior to administration of medications, the patient was re-assessed for adequacy to receive sedatives. The heart rate, respiratory rate, oxygen saturations, blood pressure, adequacy of pulmonary ventilation, and response to care were monitored throughout the procedure. The physical status of the patient was re-assessed after the procedure. After obtaining informed consent, the endoscope was passed under direct vision. Throughout the procedure, the patient's blood pressure, pulse, and oxygen saturations were monitored continuously. The Endoscope was introduced through the mouth, and advanced to the second part of duodenum. The upper GI endoscopy was accomplished without difficulty. The patient tolerated the procedure well. Findings: One linear esophageal ulcer with no stigmata of recent bleeding was found 40 cm from the incisors. The gastric mucosa was diffusely congested including on retroflexed views. Localized severe inflammation characterized by marked congestion (edema) and erythema was found in the gastric prepyloric antrum. Biopsies were taken with a cold forceps for Helicobacter pylori testing using CLOtest. Biopsies were taken with a cold forceps for histology. The duodenal bulb was markedly congested edematous. The mucosa was friable with patchy erythema. 1-2 non-bleeding cratered broad duodenal ulcers with no stigmata of bleeding was found in the first portion of the duodenum and in junction of 1st-2nd segment. The second portion of the duodenum was normal. _ Impression: - Esophageal ulcer/consistent with reflux esophagitis - Congestive gastritis in body and fundus, biopsied for SHON - Severe congestive gastritis in prepyloric stomach, biopsied for histology - Congestive duodenitis in duodenum bulb with 1-2 broad cratered ulcers - Normal second portion of the duodenum Recommendation: - [facility]. - Await pathology results. - High dose PPI - Avoid NSAIDs - Repeat upper endoscopy in 3 months for surveillance. - Advance diet as tolerated [Initial Duration' [Diet Recommendation' [Duration'. Procedure Code(s): --- Professional --- 15973, Esophagogastroduod enoscopy, flexible, transoral; with biopsy, single or multiple --- Technical --- 40059, Esophagogastroduod enoscopy, flexible, transoral; with biopsy, single or multiple Diagnosis Code(s): --- Professional --- K22.10, Ulcer of esophagus without bleeding K29.70, Gastritis, unspecified, without bleeding K26.9, Duodenal ulcer, unspecified as acute or chronic, without hemorrhage or perforation R10.10, Upper abdominal pain, unspecified R93.3, Abnormal findings on diagnostic imaging of other parts of digestive tract --- Technical --- K22.10, Ulcer of esophagus without bleeding K29.70, Gastritis, unspecified, without bleeding K26.9, Duodenal ulcer, unspecified as acute or chronic, without hemorrhage or perforation R10.10, Upper abdominal pain, unspecified R93.3, Abnormal findings on diagnostic imaging of other parts of digestive tract CPT copyright 2020 [employer]. All rights reserved. The codes documented in this report are preliminary and upon farmworker turkey farm review may be revised to meet current compliance requirements. Dr. Brad Walker MD __ Brad Walker MD 12/04/2023 1:47:33 PM This report has been signed electronically. Number of Addenda: 0 Note Initiated On: 12/04/2023 8:04 AM [facility] 12/04/2023 8:04 AM CDT Brad Walker MD GI PROCEDURE ORDERAB LES [facility] [place] [address] * (ABNORMAL) RENAL FUNCTION PANEL (12/04/2023 4:29 AM CDT) Only the most recent of2 resultswithin the time period is included. Glucose 171(H) 70 - 105 mg/dL 12/04/2023 6:01 AM CDT [facility] Sodium 138 136 - 145 mmol/L 12/04/2023 6:01 AM CDT [facility] Potassium 3.4(L) 3.5 - 5.1 mmol/L 12/04/2023 6:01 AM CDT [facility] Chloride 102 98 - 107 mmol/L 12/04/2023 6:01 AM CDT [facility] CO2 28 22 - 29 mmol/L 12/04/2023 6:01 AM CDT [facility] Calcium 7.8(L) 8.4 - 10.4 mg/dL 12/04/2023 6:01 AM CDT [facility] Anion Gap 8 6 - 16 mmol/L 12/04/2023 6:01 AM CDT [facility] BUN 8 7 - 26 mg/dL 12/04/2023 6:01 AM T [facility] Creatinine 0.66(L) 0.72 - 1.25 mg/dL 12/04/2023 6:01 AM T [facility] Albumin 2.8(L) 3.4 - 5.0 gm/dL 12/04/2023 6:01 AM CDT [facility] Phosphorus 2.8 2.3 - 4.7 mg/dL 12/04/2023 6:01 AM T [facility] eGFR by CKD-EPI >90 >=90 mL/min/1.7 3 m2 12/04/2023 6:01 AM CDT [facility] Blood BLOOD SPECIMEN / Unknown Venipuncture / Unknown 12/04/2023 4:29 AM CDT 12/04/2023 5:34 AM CDT Ayaka Peng MD LAB - CHEMISTRY NAHID SHOOK [facility] Organization Address City/State/ZIP Co de Phone Number [facility] [address] [place] [address] * (ABNORMAL) LIPASE BLOOD (12/03/2023 4:41 AM CDT) Only the most recent of17 resultswithin the time period is included. Lipase 170(H) <60 U/L 12/03/2023 5:16 AM CDT [facility] Blood BLOOD SPECIMEN / Unknown Venipuncture / Unknown 12/03/2023 4:41 AM CDT 12/03/2023 4:47 AM CDT Grace Major [facility] LAB - CHEM ISTRY ORDERABLES Performing Organization Address City/[facility]/ZIP Co de Phone Number [facility] [address] [place] [address] * (ABNORMAL) AMYLASE BLOOD (12/03/2023 4:41 AM CDT) Only the most recent of6 resultswithin the time period is included. Amylase 142(H) 25 - 125 U/L 12/03/2023 5:16 AM CDT [facility] Blood BLOOD SPECIMEN / Unknown Venipuncture / Unknown 12/03/2023 4:41 AM CDT 12/03/2023 4:47 AM CDT Grace Major [facility] LAB - CHEM ISTRY ORDERABLES Performing Organization Address [facility] de Phone Number [facility] [address] [place] [id number] * CT ABDOMEN PELVIS W CONTRAST (12/02/2023 7:34 PM CDT) Only the most recent of7 resultswithin the time period is included. Anatomical Region Laterality Modality Abdomen, Pelvis Computed Tomogra phy 12/02/2023 8:07 PM CDT Impressions 12/02/2023 8:18 PM CDT IMPRESSION: 1. There is circumferential mural thickening of the gastric pylorus and proximal duodenal sweep with adjacent inflammatory fat stranding. This is favored to represent a gastritis or duodenitis rather than an acute pancreatitis. Possible accompanying gastric ulceration. GI evaluation is recommended. 2. There are 2 small pseudocysts or walled off necrosis within the pancreatic head and uncinate process that are slightly smaller than on the previous CT from 09/10/2023. 3. Small hepatic and renal hypodensities probably represent cysts. 4. Small volume of abdominal and pelvic ascites. > Interpreting Provider: Faisal Sky DO on 12/02/2023 8:18 PM Narrative 12/02/2023 8:18 PM CDT PROCEDURE: CT ABDOMEN PELVIS W CONTRAST DATE/TIME OF EXAM: 12/02/2023 7:34 PM CLINICAL INFORMATION: Upper abdominal pain with nausea and vomiting. History of pancreatitis and hernia repair. COMPARISON: CT abdomen and pelvis 09/10/2023. TECHNIQUE: CT of the abdomen and pelvis was performed following intravenous contrast utilizing standard protocol. CT dose reduction technique was used, including Automated Exposure Control. CONTRAST: IOPAMIDOL 76 % IV SOLN:80 mL FINDINGS: Subsegmental atelectasis at the lung bases. Hepatic steatosis. Several subcentimeter hypodense lesions within the liver are not adequately characterized but similar when compared to the prior. These probably represent cysts. These may be confirmed with MRI if warranted. The gallbladder and biliary tree are unremarkable. There is significant circumferential mural thickening of the gastric pylorus to involve portions the proximal duodenum extending from the bulb to the junction to the third portion with adjacent fat stranding. While this does infiltrate some of the peripancreatic fat near the head and uncinate process, findings are favored to represent a gastritis or duodenitis rather than an acute pancreatitis. This will require correlation. Questionable ulceration along the superior aspect of the gastric antrum measuring 1.9 x 1.9 cm (series 2 image 31 for instance). GI evaluation may also be obtained. There are 2 persistent low density collections within the pancreas including within the head measuring 1.8 x 1.6 cm (as having previously measured 2.0 x 1.9 cm) as well as within the uncinate process which currently measures 2.8 x 2.1 cm (previously measured 3.4 x 2.5 cm). These may represent a persistent intrapancreatic pseudocysts or walled off necrosis. Otherwise, the pancreas enhances appropriately. The spleen and adrenal glands are normal. Small hypodense lesions within both kidneys, the largest of which represent cysts. Smaller lesions are not adequately characterized but probably cysts as well. There is no hydronephrosis. Small volume of perinephric edema or fluid. This may be due to the process involving the stomach and duodenum rather than intrinsic to the right kidney. There is no evidence of a gastric outlet obstruction or bowel obstruction. The cecum, terminal ileum and appendix are normal. Small volume of ascites within the pelvic cul-de-sac and adjacent to the liver. There is no evidence of free air. Fat-containing periumbilical hernia. Aorta is nonaneurysmal. The celiac, SMA and ALBA are all patent. There is no retroperitoneal lymphadenopathy. 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 No compression fracture. No aggressive bone or endplate destruction. Procedure Note AsyaFaisal, DO - 12/02/2023 PROCEDURE: CT ABDOMEN PELVIS W CONTRAST DATE/TIME OF EXAM: 12/02/2023 7:34 PM CLINICAL INFORMATION: Upper abdominal pain with nausea and vomiting. History of pancreatitis and hernia repair. COMPARISON: CT abdomen and pelvis 09/10/2023. TECHNIQUE: CT of the abdomen and pelvis was performed following intravenouscontrast utilizing standard protocol. CT dose reduction technique was used, including Automated ExposureControl. CONTRAST: IOPAMIDOL 76 % IV SOLN:80 mL FINDINGS: Subsegmental atelectasis at the lung bases. Hepatic steatosis. Several subcentimeter hypodense lesions within theliver are not adequately characterized but similar when compared to the prior. These probably represent cysts. These may be confirmed with MRI if warranted. The gallbladder and biliary tree are unremarkable. There is significant circumferential mural thickening of the gastric pylorus to involve portions the proximal duodenum extending from thebulb to the junction to the third portion with adjacent fat stranding. While this does infiltrate some of the peripancreatic fat near the head and uncinate process, findings are favored to represent a gastritis or duodenitis rather than an acute pancreatitis. This will require correlation. Questionable ulceration along the superior aspect of the gastric antrum measuring 1.9 x 1.9 cm (series 2 image 31 for instance).GI evaluation may also be obtained. There are 2 persistent low density collections within the pancreas including within the head measuring 1.8 x 1.6 cm (as having previously measured 2.0 x 1.9 cm) as well as within the uncinate process which currently measures 2.8 x 2.1 cm (previously measured 3.4 x 2.5 cm).These may represent a persistent intrapancreatic pseudocysts or walled off necrosis. Otherwise, the pancreas enhances appropriately. The spleen and adrenal glands are normal. Small hypodense lesions within both kidneys, the largest of which represent cysts. Smaller lesions arenot adequately characterized but probably cysts as well. There is no hydronephrosis. Small volume of perinephric edema or fluid. This may bedue to the process involving the stomach and duodenum rather than intrinsicto the right kidney. There is no evidence of a gastric outlet obstruction or bowelobstruction. The cecum, terminal ileum and appendix are normal. Small volume ofascites within the pelvic cul-de-sac and adjacent to the liver. There is no evidence of free air. Fat-containing periumbilical hernia. Aorta is nonaneurysmal. The celiac, SMA and ALBA are all patent. There is no retroperitoneal lymphadenopathy. 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 No compressionfracture. No aggressive bone or endplate destruction. IMPRESSION: 1. There is circumferential mural thickening of the gastric pylorus and proximal duodenal sweep with adjacent inflammatory fat stranding. Thisis favored to represent a gastritis or duodenitis rather than an acute pancreatitis. Possible accompanying gastric ulceration. GI evaluation is recommended. 2. There are 2 small pseudocysts or walled off necrosis within the pancreatic head and uncinate process that are slightly smaller than onthe previous CT from 09/10/2023. 3. Small hepatic and renal hypodensities probably represent cysts. 4. Small volume of abdominal and pelvic ascites. > Interpreting Provider: Faisal Sky DO on 12/02/2023 8:18 PM Angela Merida PA-C CT ORDERABLES * (ABNORMAL) HYDROXYBUTYRATE BETA (12/02/2023 5:30 PM CDT) Beta-Hydroxybu tyrate 0.72(H) <0.50 mmol/L 12/02/2023 5:56 PM CDT [facility] Blood BLOOD SPECIMEN / Unknown Venipuncture / Unknown 12/02/2023 5:30 PM CDT 12/02/2023 5:36 PM CDT Narrative [facility] - 12/02/2023 5:56 PM CDT Results >1.5 mmol/L may be indicative of diabetic ketoacidosis. Use in conjunction with Serum Glucose levels. Starla Foote PA-C LAB - CHEMISTRY NAHID SHOOK [facility] [address] [place] [address] * CARDIAC RHYTHM STRIP ORDER (09/15/2023 4:49 PM DRY MILL WORKER) Narrative 09/15/2023 4:49 PM [employer] MILL WORKER Ordered by an unspecified provider. Scanned Document CARDIAC SERVICES ORD ERABLES * (ABNORMAL) CBC W/O DIFFERENTIAL (09/13/2023 4:21 AM DRY MILL WORKER) Only the most recent of2 resultswithin the time period is included. WBC 4.2 4.0 - 10.7 x10E9/L 09/13/2023 4:50 AM [facility] RBC Count 3.36(L) 4.30 - 5.80 x10E12/L 09/13/2023 4:50 AM [facility] Hemoglobin 10.8(L) 13.3 - 17.5 g/dL 09/13/2023 4:50 AM [facility] Hematocrit 31.3(L) 38.7 - 51.1 % 09/13/2023 4:50 AM [facility] MCV 93.2 80.0 - 98.0 fL 09/13/2023 4:50 AM [facility] MCH 32.1 26.7 - 33.6 pg 09/13/2023 4:50 AM [facility] MCHC 34.5 31.7 - 36.3 g/dL 09/13/2023 4:50 AM [facility] RDW-CV 11.9 11.3 - 14.8 % 09/13/2023 4:50 AM [facility] Platelet Count 142(L) 150 - 420 x10E9/L 09/13/2023 4:50 AM [facility] MPV 11.7(H) 7.8 - 11.4 fL 09/13/2023 4:50 AM [facility] Blood BLOOD SPECIMEN / Unknown Venipuncture / Unknown 09/13/2023 4:21 AM [employer]Y MILL WORKER 09/13/2023 4:31 AM [employer] MILL WORKER Margie Medel MD LAB - HEMATOLOGY ORD ERABLES [facility] [address] [place] [address] * CT HEAD NON CONTRAST (09/11/2023 6:03 AM DRY MILL WORKER) Anatomical Region Laterality Modality Head Computed Tomogra phy 09/11/2023 8:25 AM [employer] MILL WORKER Impressions 09/11/2023 8:28 AM [employer]Y MILL WORKER IMPRESSION: No intracranial hemorrhage or other acute abnormality by CT. > Interpreting Provider: Florecita Tong MD on 09/11/2023 8:28 AM Narrative 09/11/2023 8:28 AM [employer] MILL WORKER PROCEDURE: CT HEAD WO CONTRAST DATE/TIME OF EXAM: 09/11/2023 6:03 AM CLINICAL INFORMATION: None relevant/not provided if blank. Indication: R51.9: Headache, unspecified Additional History: COMPARISON: None. TECHNIQUE: Noncontrast CT brain was performed utilizing standard protocol. CT dose reduction technique was used, including Automated Exposure Control. FINDINGS: The ventricular system is within normal limits. There is no evidence of midline shift, focal area of abnormal attenuation, acute intracranial hemorrhage. The mastoid air cells and paranasal sinuses are unremarkable. The orbits are grossly unremarkable. Procedure Note Florecita Tong MD - 09/11/2023 PROCEDURE: CT HEAD WO CONTRAST DATE/TIME OF EXAM: 09/11/2023 6:03 AM CLINICAL INFORMATION: None relevant/not provided if blank. Indication: R51.9: Headache, unspecified Additional History: COMPARISON: None. TECHNIQUE: Noncontrast CT brain was performed utilizing standard protocol. CT dose reduction technique was used, including Automated ExposureControl. FINDINGS: The ventricular system is within normal limits. There is no evidence of midline shift, focal area of abnormal attenuation, acute intracranial hemorrhage. The mastoid air cells and paranasal sinuses areunremarkable. The orbits are grossly unremarkable. IMPRESSION: No intracranial hemorrhage or other acute abnormality by CT. > Interpreting Provider: Florecita Tong MD on 09/11/2023 8:28 AM Simin Andrade MD CT ORDERABLES * (ABNORMAL) HEMOGLOBIN A1C (09/11/2023 4:16 AM DRY MILL WORKER) Only the most recent of3 resultswithin the time period is included. Hemoglobin A1c 7.5(H) <5.7 % 09/11/2023 4:45 AM [employer]Y MILL WORKER [facility] Estimated Average Glucose 169 mg/dL 09/11/2023 4:45 AM [employer] MILL WORKER [facility] Blood BLOOD SPECIMEN / Unknown Venipuncture / Unknown 09/11/2023 4:16 AM [employer]Y MILL WORKER 09/11/2023 4:29 AM [employer] MILL WORKER Narrative [facility] - 09/11/2023 4:45 AM [employer] MILL WORKER HbA1c Interpretation: Normal: < 5.7% Pre-diabetes: 5.7-6.4% Diabetes: Equal to or greater than 6.5% Test results diagnostic of diabetes should be repeated for confirmation. Treatment target values recommended by ADA and other clinical organizations should be used to evaluate metabolic control in patients. This test should not replace glucose testing for patients with Type 1 diabetes, pediatric patients, or women. Falsely low HbA1c results may be observed in patients with clinical conditions that shorten erythrocyte life span or decrease mean erythrocyte age such as the presence of unstable hemoglobin variants, elevated hemoglobin F level or other causes of hemolytic anemia. HbA1c may not accurately reflect glycemic control when clinical conditions that affect erythrocyte survival are present. Severe Iron deficiency anemia may yield falsely high results. Hemoglobin A1c assay should not be used to diagnose or monitor diabetes in patients with malignancy, recent blood transfusion, chronic kidney or liver disease. This method may yield falsely low results when hemoglobin (HbF) exceeds 5% in the specimen. The [employer]elles Alinity assay for the measurement of HbA1c is a National Glycohemoglobin Standardization Program (NGSP) certified method. Simin Andrade MD LAB - CHEMISTRY NAHID SHOOK [facility] Organization Address City/State/ZIP Co de Phone Number [facility] [address] [place] [address] * URINE MICROSCOPIC ONLY REFLEX TO CULTURE (09/10/2023 5:46 PM DRY MILL WORKER) Only the most recent of2 resultswithin the time period is included. Reflex Status Culture not indicated 09/10/2023 6:06 PM [employer] MILL WORKER [facility] RBC UA 0-2 0 - 5 # /hpf 09/10/2023 6:06 PM [employer] MILL WORKER [facility] WBC UA 0-5 0 - 5 # /hpf 09/10/2023 6:06 PM [employer]Y MILL WORKER [facility] Bacteria UA None Seen None Seen 09/10/2023 6:06 PM DRY MILL WORKER [facility] Squamous Epithelial Cells 0-2 0 - 5 /hpf 09/10/2023 6:06 PM [facility] Mucus UA 2+ /LPF 09/10/2023 6:06 PM [facility] Urine URINE SPECIMEN OBTAINED BY CLEAN CATCH PROCEDURE / Unknown Collection / Unknown 09/10/2023 5:46 PM DRY MILL WORKER 09/10/2023 5:53 PM [employer]Y MILL WORKER Narrative [facility] - 09/10/2023 6:06 PM DR[employer] MILL WORKER Starla Foote PA-C LAB - URINALYSIS ORD ERABLES [facility] [address] [place] [address] * (ABNORMAL) URINALYSIS REFLEX MICROSCOPIC REFLEX CULTURE (09/10/2023 5:46 PM DRY MILL WORKER) Only the most recent of5 resultswithin the time period is included. Color UA Yellow Straw, Yellow 09/10/2023 6:02 PM [facility] Clarity UA Clear Clear 09/10/2023 6:02 PM [facility] Glucose UA 3+(A) Negative 09/10/2023 6:02 PM [facility] Bilirubin UA Negative Negative 09/10/2023 6:02 PM [facility] Ketone UA 1+(A) Negative 09/10/2023 6:02 PM [facility] Specific [place] UA 1.025 1.005 - 1.030 09/10/2023 6:02 PM [facility] Blood UA 1+(A) Negative 09/10/2023 6:02 PM [facility] pH UA 5.0 5.0 - 8.0 pH 09/10/2023 6:02 PM [facility] Protein UA 2+(A) Negative 09/10/2023 6:02 PM [facility] Urobilinogen UA Negative Negative mg/dL 09/10/2023 6:02 PM [facility] Nitrite UA Negative Negative 09/10/2023 6:02 PM [facility] Leukocyte UA Negative Negative 09/10/2023 6:02 PM [facility] Urine Microscopy Urine microscopy to follow 09/10/2023 6:02 PM [facility] Reflex Status Culture not indicated 09/10/2023 6:02 PM DRY MILL WORKER [facility] Urine URINE SPECIMEN OBTAINED BY CLEAN CATCH PROCEDURE / Unknown Collection / Unknown 09/10/2023 5:46 PM DRY MILL WORKER 09/10/2023 5:53 PM [employer] MILL WORKER Narrative [facility] - 09/10/2023 6:02 PM DRY MILL WORKER Starla Groos PA-C LAB - URINALYSIS ORD ERABLES Performing Organization Address City/[facility]/ZIP Co de Phone Number [facility] [address] [place], [place] [id number] * TSH REFLEX FREE T4 (09/10/2023 5:46 PM DRY MILL WORKER) TSH 0.881 0.350 - 4.940 uIU/mL 09/10/2023 7:02 PM [employer] MILL WORKER [facility] Blood BLOOD SPECIMEN / Unknown Venipuncture / Unknown 09/10/2023 5:46 PM DRY MILL WORKER 09/10/2023 5:54 PM [employer] MILL WORKER Starla Groos PA-C LAB - CHEMISTRY ORDE RABLES Performing Organization Address [facility]/ZIP Co de Phone Number [facility] [address] [place] [address] * (ABNORMAL) DIFFERENTIAL MANUAL (09/10/2023 5:46 PM DRY MILL WORKER) Only the most recent of4 resultswithin the time period is included. Neutrophil % 73 41 - 74 % 09/10/2023 6:25 PM DR[employer] MILL WORKER [facility] Lymphocyte % 19 17 - 47 % 09/10/2023 6:25 PM [employer] MILL WORKER [facility] Monocyte % 3 3 - 11 % 09/10/2023 6:25 PM [employer] MILL WORKER [facility] Eosinophil % 4 0 - 7 % 09/10/2023 6:25 PM [employer] MILL WORKER [facility] Basophil % 1 0 - 2 % 09/10/2023 6:25 PM DRY MILL WORKER [facility] Neutrophil Absolute 8.18(H) 1.60 - 7.50 x10E9/L 09/10/2023 6:25 PM [employer] MILL WORKER [facility] Lymphocyte Absolute 2.13 1.00 - 4.40 x10E9/L 09/10/2023 6:25 PM DR[employer] MILL WORKER [facility] Monocyte Absolute 0.34 0.15 - 1.00 x10E9/L 09/10/2023 6:25 PM DRY MILL WORKER [facility] Eosinophil Absolute 0.45 0.00 - 0.60 x10E9/L 09/10/2023 6:25 PM DRY MILL WORKER [facility] Basophil Absolute 0.11 0.00 - 0.13 x10E9/L 09/10/2023 6:25 PM DRY MILL WORKER [facility] RBC Morphology NORMAL 09/10/2023 6:25 PM DRY MILL WORKER [facility] Blood BLOOD SPECIMEN / Unknown Venipuncture / Unknown 09/10/2023 5:46 PM DRY MILL WORKER 09/10/2023 5:54 PM [employer] MILL WORKER Starla Foote PA-C LAB - HEMATOLOGY ORD ERABLES Performing Organization Address [facility] Co de Phone Number [facility] [address] [place] [address] * TROPONIN I (11/13/2021 9:46 PM CDT) Only the most recent of10 resultswithin the time period is included. Troponin I <0.010 <0.038 ng/mL 11/13/2021 10:29 PM CDT [facility] Blood BLOOD SPECIMEN / Unknown Venipuncture / Unknown 11/13/2021 9:46 PM CDT 11/13/2021 10:07 PM CDT Edward House DO LAB - CHEMISTRY ORDE BOONE Performing Organization Address City/[facility]/ZIP Co de Phone Number [facility] [address] [place] [address] * LACTIC ACID BLOOD REFLEX TO REPEAT (11/13/2021 6:35 PM CDT) Lactic Acid 1.85 <=2 mmol/L 11/13/2021 7:07 PM CDT [facility] Blood BLOOD SPECIMEN / Unknown Venipuncture / Unknown 11/13/2021 6:35 PM CDT 11/13/2021 6:49 PM CDT [facility] LAB - CHEMISTRY ORDE [employer] Performing Organization Address [facility]/ZIP Co de Phone Number [facility] [id number] [place] [phone] * HIV-1 HIV-2 ANTIBODY + HIV P24 AG PANEL (11/13/2021 6:35 PM CDT) HIV1/2 Ab + P24 Ag Non Reactive Non Reactive 11/13/2021 7:30 PM CDT [facility] Blood BLOOD SPECIMEN / Unknown Venipuncture / Unknown 11/13/2021 6:35 PM CDT 11/13/2021 6:51 PM CDT Narrative [facility] - 11/13/2021 7:30 PM CDT No Laboratory evidence of HIV infection. [facility] LAB - CHEMISTRY [employer] Performing Organization Address [facility] Co de Phone Number [facility] [address] [place] [phone] * HEPATITIS C ANTIBODY (11/13/2021 6:35 PM CDT) Pathologist [facility] HCV Antibody Screen Non Reactive Non Reactive 11/13/2021 7:32 PM CDT [facility] Blood BLOOD SPECIMEN / Unknown Venipuncture / Unknown 11/13/2021 6:35 PM CDT 11/13/2021 6:51 PM CDT Narrative [facility] - 11/13/2021 7:32 PM CDT Non Reactive - Antibodies to Hepatitis C virus (HCV) were not detected, result does not exclude early acute HCV infection. [facility] LAB - CHEMISTRY [employer] Performing Organization Address City/[facility] Co de Phone Number [facility] [address] [place] [address] * PROSTATE SPECIFIC ANTIGEN DIAGNOSTIC (02/14/2020 3:02 PM CDT) Only the most recent of6 resultswithin the time period is included. Blood BLOOD SPECIMEN / Unknown 02/14/2020 3:02 PM CDT Narrative OTHER LAB - 02/14/2020 3:02 PM CDT PSA 0.45 Malvin Bell MD LAB - CHEMISTRY ORDERABLES OTHER LAB * ETT LINE PERFORMABLE (09/03/2019 2:28 PM DRY MILL WORKER) Narrative Gabby Jones APRN-CRNA - 09/03/2019 2:28 PM [employer] MILL WORKER Gabby Jones APRN-CRNA 09/03/2019 2:29 PM Endotracheal Tube Placement: Patient Location: OR. Intubation Event Date/Time: 09/03/2019 2:18 PM Procedure: intubation ([id number]). Procedure Section: Sedation: under general anesthesia. Indications for Airway Management: anesthesia Procedure pretreatments used? No Induction: standard IV Patient Position: sniffing Mask Ventilation: easy with oral airway. Blade Type: Keyonna Blade Size: 4 Laryngoscopy View: grade 2 (partial cords) Intubation Adjuncts: stylet Tube: endotracheal tube Placement: oral Tube type: cuff - inflated Tube Size (MM): 8 Depth of Insertion (CM): 24 Measured From: lips Cuff volume (mL): 7 Cuff Inflated With: air Number of Attempts: 1. Placement Verified By: direct visualization, bilateral breath sounds, chest auscultation and CO2 monitor Tube secured with: adhesive tape. Difficult Airway? No. Procedure Start Time: 09/03/2019 2:18 PM. Staff Section Anesthesia Provider: Gabby Jones APRN-CRNA, Performed the procedure Phillip Alexis DO GENERAL ANESTHESIA O RDERABLES * TISSUE 12 SPECIMENS (02/26/2018 10:48 AM CDT) ENTIRE PROSTATE / Unknown 02/26/2018 10:48 AM CDT Malvin Bell MD LAB - PATHOLOGY/ CYTOLOGY ORDERABLES OTHER LAB * CULTURE FLUOROQUINOLONE RESIST GNR (02/12/2018 3:44 PM CDT) Fluoroquinolone Resist GNR Culture Final report [facility] ACCOUNT BILL Microbiology RECTAL SWAB / Unknown 02/12/2018 3:44 PM CDT 02/12/2018 Narrative Resulting Agency Comment [facility] [address] [facility] [phone] Malvin Bell MD LAB - MICROBIOLO GY ORDERABLES [facility] ACCOUNT BILL [address] [place] [address] * SUSCEPTIBILITY RESULT RFLXD (02/12/2018 3:44 PM CDT) Result 1 [facility] ACCOUNT BILL Comment:No Fluoroquinolone R esistant GNR Detected. 02/12/2018 3:44 PM CDT 02/12/2018 Narrative Resulting Agency Comment [facility] [address] [facility] [phone] Malvin Bell MD LAB - MICROBIOLO GY ORDERABLES [facility] ACCOUNT BILL [address] [place] [address] * BLADDER SCAN - POINT OF CARE (AMB) (12/29/2017 10:51 AM CDT) mL 17 Urine URINE / Unknown 12/29/2017 1 0:51 AM CDT Malvin Bell MD LAB - POINT OF C ARE ORDERABLES * INFLUENZA A+B+RSV PCR PANEL (10/08/2017 11:11 AM DRY MILL WORKER) Influenza A PCR Not detected Not detected, Invalid 10/08/2017 3:50 PM DRY MILL WORKER [facility] Influenza B PCR Not detected Not detected, Invalid 10/08/2017 3:50 PM DRY MILL WORKER [facility] RSV PCR Not detected Not detected, Invalid 10/08/2017 3:50 PM DRY MILL WORKER [facility] Microbiology NASOPHARYNGEAL SWAB / Unknown Collection / Unknown 10/08/2017 11:11 AM DRY MILL WORKER 10/08/2017 11:18 AM DRY MILL WORKER Henry Piedra DO LAB - MICROBIOLOGY O SIMÓ[facility] [address] [place] [address], [facility] [phone] * XR CHEST 1VW PORTABLE (10/05/2017 11:19 PM DRY MILL WORKER) Only the most recent of2 resultswithin the time period is included. Anatomical Region Laterality Modality Chest Radiographic Alba ging 10/05/2017 11:4 7 PM DRY MILL WORKER Impressions 10/05/2017 11:48 PM DRY MILL WORKER Incomplete inspiration with linear streaks of density in the lower lobe suspicious for atelectasis. This examination uses the nonstandard portable technique. This report was transcribed with a computerized speech recognition system. In an effort to expedite patient care, it has not been adjusted for typographical, grammatical or syntax problems by a trained medical aide. For questions about the report, please contact the Radiology Department. Narrative 10/05/2017 11:48 PM DRY MILL WORKER PORTABLE AP CHEST INDICATION: Weakness. Chest pain.. COMPARISON: September 19, 2017 FINDINGS: A single portable view of the chest shows the lungs to be worse, with incomplete inspiration. Linear streaks of density are now visible in both lower lung buckley roughly parallel to the diaphragms.. The heart size is normal. Procedure Note Giuseppe Garcia MD - 10/05/2017 PORTABLE AP CHEST INDICATION: Weakness. Chest pain.. COMPARISON: September 19, 2017 FINDINGS: A single portable view of the chest shows the lungs to be worse, with incomplete inspiration. Linear streaks of density are now visible in both lower lung buckley roughly parallel to the diaphragms.. The heart size is normal. IMPRESSION Incomplete inspiration with linear streaks of density in the lower lobe suspicious for atelectasis. This examination uses the nonstandard portable technique. This report was transcribed with a computerized speech recognition system. In an effort to expedite patient care, it has not been adjusted for typographical, grammatical or syntax problems by a trained medical aide. For questions about the report, please contact the Radiology Department. Antionette Cerrato MD DIAGNOSTIC IMAGING O SIMÓN * (ABNORMAL) PT PTT PANEL (10/05/2017 10:58 PM DRY MILL WORKER) PT 12.2(H) 9.5 - 11.6 sec 10/05/2017 11:30 PM DRY MILL WORKER [facility] INR 1.2(H) 0.9 - 1.1 10/05/2017 11:30 PM DRY MILL WORKER [facility] PTT 23.1 21.0 - 32.0 sec 10/05/2017 11:30 PM DRY MILL WORKER [facility] Blood BLOOD SPECIMEN / Unknown Venipuncture / Unknown 10/05/2017 10:58 PM DRY MILL WORKER 10/05/2017 11:16 PM DRY MILL WORKER Narrative [facility] - 10/05/2017 11:30 PM DRY MILL WORKER Conventional Warfarin Anticoagulant Therapy: INR Reference Range: 2.0-3.0 Intensive Warfarin Anticoagulant Therapy: INR Reference Range: 2.5-3.5 Heparin Therapeutic Range for PTT: 47.7 - 68.6 seconds. Antionette Cerrato MD LAB - COAGULATION OR DERABLES Performing Organization Address [facility] Co de Phone Number [facility] [address] [place], [place] [phone] * PHOSPHORUS BLOOD (10/05/2017 10:58 PM DRY MILL WORKER) Phosphorus 4.1 2.5 - 4.9 mg/dL 10/05/2017 11:30 PM [facility] Blood BLOOD SPECIMEN / Unknown Venipuncture / Unknown 10/05/2017 10:58 PM DRY MILL WORKER 10/05/2017 11:05 PM DRY MILL WORKER Antionette Cerrato MD LAB - CHEMISTRY ORDE RABLES Performing Organization Address [facility]/ZIP Co de Phone Number [facility] [address] [place] [address] * ALCOHOL ETHYL BLOOD (10/05/2017 10:58 PM DRY MILL WORKER) Ethanol <3 <10 mg/dL 10/05/2017 11:40 PM [facility] Ethanol Calculated <0.003 <0.100 gm/dL 10/05/2017 11:40 PM [facility] Blood BLOOD SPECIMEN / Unknown Venipuncture / Unknown 10/05/2017 10:58 PM DRY MILL WORKER 10/05/2017 11:05 PM DRY MILL WORKER Narrative [facility] - 10/05/2017 11:40 PM DRY MILL WORKER Non Legal Serum Alcohol Antionette Cerrato MD LAB - CHEMISTRY NAHID SHOOK [facility] [address] [place] [address] * XR ABD OBSTR SERIES (09/23/2017 1:17 PM DRY MILL WORKER) Only the most recent of2 resultswithin the time period is included. Anatomical Region Laterality Modality Abdomen Radiographic Alba ging 09/23/2017 3:32 PM DRY MILL WORKER Narrative 09/23/2017 3:41 PM DRY MILL WORKER Exam: Supine and upright AP views of the abdomen Indication: Abdominal pain Findings: There is no definitive evidence of bowel obstruction. There are a few mildly dilated, gaseously distended small bowel loops in a pattern not greatly changed from the prior study. There is no free air. Procedure Note Phillip Feldman MD - 09/23/2017 Exam: Supine and upright AP views of the abdomen Indication: Abdominal pain Findings: There is no definitive evidence of bowel obstruction. There are a few mildly dilated, gaseously distended small bowel loops in a pattern not greatly changed from the prior study. There is no free air. Henry Piedra DO DIAGNOSTIC IMAGING O RDERABLES * (ABNORMAL) LIPID PROFILE (09/23/2017 4:13 AM DRY MILL WORKER) Only the most recent of2 resultswithin the time period is included. Cholesterol 372(H) <200 mg/dL 09/23/2017 5:24 AM DRY MILL WORKER [facility] Triglycerides 2,210(H) <150 mg/dL 09/23/2017 5:24 AM [employer] MILL WORKER [facility] HDL Cholesterol 16(L) >40 mg/dL 8 5:24 AM DRY MILL WORKER [facility] LDL Calculated <130 mg/dL 09/23/2017 5:24 AM [facility] Comment: Unable to calculate LDL due to elevated Triglycerides, please consider ordering a Direct LDL. VLDL Calculated <=30 mg/dL 09/23/2017 5:24 AM [employer] MILL WORKER [facility] Comment: Unable to calculate LDL due to elevated Triglycerides, please consider ordering a Direct LDL. Chol HDL Ratio 23.3(H) <4.5 09/23/2017 5:24 AM [employer] MILL WORKER [facility] LDL/HDL Ratio <5.0 09/23/2017 5:24 AM [employer] MILL WORKER [facility] Comment: Unable to calculate LDL due to elevated Triglycerides, please consider ordering a Direct LDL. Blood BLOOD SPECIMEN / Unknown Venipuncture / Unknown 09/23/2017 4:13 AM DRY MILL WORKER 09/23/2017 4:15 AM [employer] MILL WORKER Shemar Chowdhury MD LAB - CHEMISTRY ORDE [place] Organization Address City/State/ZIP Co de Phone Number [facility] [address] [place] [address] * US ABD LIMITED (RUQ) (09/22/2017 9:05 AM DRY MILL WORKER) Only the most recent of2 resultswithin the time period is included. Anatomical Region Laterality Modality Abdomen Ultrasound 09/22/2017 10:4 5 AM [employer] MILL WORKER Impressions 09/22/2017 10:47 AM [employer] MILL WORKER Gallbladder sludge Fatty liver Narrative 09/22/2017 10:47 AM DRY MILL WORKER Gallbladder ultrasound Clinical Indication: Abdominal pain Technique: Multiple longitudinal and transverse grayscale images of the right upper quadrant were obtained. Findings: There is gallbladder sludge. There are no shadowing gallstones. There is no evidence of gallbladder wall thickening or pericholecystic fluid. The liver echotexture is increased consistent with fatty infiltration. The common bile duct measures 3 mm in width. The pancreas is unremarkable. The right kidney is unremarkable measuring 13.8 cm in length. There is minimal perihepatic free fluid. Procedure Note Mickey De La Cruz MD - 09/22/2017 Gallbladder ultrasound Clinical Indication: Abdominal pain Technique: Multiple longitudinal and transverse grayscale images of the right upper quadrant were obtained. Findings: There is gallbladder sludge. There are no shadowing gallstones. There is no evidence of gallbladder wall thickening or pericholecystic fluid. The liver echotexture is increased consistent with fatty infiltration. The common bile duct measures 3 mm in width. The pancreas is unremarkable. The right kidney is unremarkable measuring 13.8 cm in length. There is minimal perihepatic free fluid. IMPRESSION Gallbladder sludge Fatty liver Анна Hernandez MD US ORDERABL ES * XR CHEST PA AND LATERAL (09/19/2017 10:53 PM DRY MILL WORKER) Anatomical Region Laterality Modality Chest Radiographic Alba ging 09/19/2017 10:5 6 PM [employer]Y MILL WORKER Impressions 09/19/2017 10:58 PM [employer] MILL WORKER Middle lobe more evident than left lower lung subsegmental atelectasis without lobar consolidating infiltrate evident. Narrative 09/19/2017 10:58 PM DRY MILL WORKER Chest Two Views History: Left-sided chest pain, stomach pain and back pains Comparison: October 01, 2016 Findings: The heart size is normal. The pulmonary vessels are normal. The heart borders and diaphragmatic margins are not obscured. Trace left lower lung chronic subsegmental atelectasis. Similar finding right lower lobe likely middle lobe. No lobar consolidation or mobile pleural effusion. No paraspinal soft tissue swelling. No hilar enlargement or major airway displacement. Procedure Note Salvador Simpson MD - 09/19/2017 Chest Two Views History: Left-sided chest pain, stomach pain and back pains Comparison: October 01, 2016 Findings: The heart size is normal. The pulmonary vessels are normal. The heart borders and diaphragmatic margins are not obscured. Trace left lower lung chronic subsegmental atelectasis. Similar finding right lower lobe likely middle lobe. No lobar consolidation or mobile pleural effusion. No paraspinal soft tissue swelling. No hilar enlargement or major airway displacement. IMPRESSION Middle lobe more evident than left lower lung subsegmental atelectasis without lobar consolidating infiltrate evident. Tyrell Medel MD DIAGNOSTIC IMAGING O RDERABLES * INFLUENZA A+B ANTIGEN RAPID (10/01/2016 9:32 AM DRY MILL WORKER) Pathologist [facility] Influenza A Antigen Negative Negative 10/01/2016 9:52 AM [employer] MILL WORKER [facility] Influenza B Antigen Negative Negative 10/01/2016 9:52 AM DRY MILL WORKER [facility] Microbiology NASOPHARYNGEAL SWAB / Unknown 10/01/2016 9:32 AM DRY MILL WORKER 10/01/2016 9:35 AM DRY MILL WORKER Narrative [facility] - 10/01/2016 9:52 AM DRY MILL WORKER The sensitivity of rapid tests for influenza A and B antigens, according to the published reports , ranges from 30-70% when compared to PCR and viral culture. For H1N1 influenza A, the sensitivity varies from 30-50%. For other influenza A strains, the sensitivity ranges from 50-70%. For influenza B virus, the sensitivity is approximately 30%. A negative result does not exclude influenza infection. False-positive (and true-negative) influenza test results are more likely to occur when disease prevalence is low, which is generally at the beginning and end of the influenza season. False-negative (and true-positive) influenza test results are more likely to occur when disease prevalence is high, which is typically at the height of the influenza season. Ender Bryant MD LAB - MICROBIOLOGY O RDERABLES Performing Organization Address City/State/[facility] Co de Phone Number [facility] [address] [place] [address] * D-DIMER (01/28/2015 6:41 PM CDT) Pathologist [facility] D-Dimer 0.25 0.17 - 0.5 mg/L FEU 01/28/2015 7:10 PM CDT [facility] Blood BLOOD SPECIMEN / Unknown 01/28/2015 6:41 PM CDT 01/28/2015 6:44 PM CDT Narrative [facility] - 01/28/2015 7:10 PM CDT The [employer] D-Dimer assay is intended for use as an aid in diagnosis of venous thromboembolism [(VTE): deep vein thrombosis (DVT), pulmonary embolism (PE), and disseminated intravascular coagulation (DIC)], and has received FDA approval to exclude VTE in patients with low or moderate pretest probability of PE or DVT (per Wells' rules). At a clinical cut-off value 0.50 mg/L FEU, the Negative Predictive Value of this assay is 99.8% for excluding PE and 100% for excluding DVT. A very low percentage of patients with VTE may yield D-Dimer results below the cut-off value. An elevated D-Dimer result has low specificity (40.4% for PE, 35.5% for DVT) and is a poor predictor of VTE. An elevated D-Dimer result may indicate DIC in the appropriate clinical setting. Results of this test should always be interpreted in conjunction with the patient's medical history, clinical presentation, and other findings. Monica Blanco MD LAB - COAGULATION OR DERABLES [facility] [address] [place] [address] * POLYSOMNOGRAM WITH CPAP IF INDICATED (11/01/2013 12:00 PM DRY MILL WORKER) 11/01/2013 12:0 0 PM [employer] MILL WORKER Narrative Transcriptions Veronica Magallanes MD - 11/02/2013 2:51 PM CST [facility] Polysomnography PATIENT NAME: BEBO ETIENNE MR#: [id number] ROOM#: CSN: [id number] DATE OF TEST: 11/01/2013 SEX: M PHYSICIAN: Veronica Magallanes M.D. :1965 ORDERING PHYSICIAN: GALILEA BILLINGS M.D. INDICATION FOR STUDY AND SLEEP HISTORY: The patient reports snoring, witnessed apneas, and excessive daytime fatigue and sleepiness and [id number] on the [place] Sleepiness Scale. The patient currently weighs 227 poundsand has a BMI of 32.5. DATA SUMMARY: This study was conducted according to a split nightprotocol. The diagnostic part of the study utilized both a nasal pressuretransducer, as well as a thermistor for airflow measurements. This study lasted 141minutes with a sleep time of 115 minutes. Sleep efficiency was 82%, which is decreased. Sleep latency was 10 minutes. The patient had no REM sleep. Sleep stage distribution was as follows: 4% stage N1, 95% stage N2, andless than 1% stage N3. The patient slept in the supine position for about 40%of the sleep time. During the study the patient had 104 arousals leading johan arousal index of 54. During the study the patient was noted to have 11 obstructive apneas and77 hypopneas. This led to an apnea-hypopnea index of 45. The index insupine sleep was 64. The index in non-supine sleep was 31. Oxygen saturationshowed a mean of 89% with a low of 81%. The patient had moderate snoring which occupied most of sleep. The second part of the study was a CPAP titration study which lasted 291 minutes with a sleep time of 251 minutes. Sleep efficiency was 86%.Sleep stage distribution was as follows: 3% stage N1, 68% stage N2, and 27%stage REM. The patient slept entirely in the supine position with 37 arousals leading to an arousal index of 8. CPAP was initiated at 5 cm and the pressure was increased to 11 cm whichwas the optimal pressure. At this pressure the patient slept for 137minutes. Sleep efficiency was about 80%. The patient had 26 minutes of supineREM sleep with 2 hypopneas leading to an AHI of 0.9. The awake and arousalindex was 8. There was no significant snoring, hypoxemia, or mask leak atthis pressure. The patient also did well at the preceding pressure of 10,during which the patient had 43 minutes of supine REM sleep with an AHI of only1.3. There was snoring persisting at that pressure. EKG showed sinus rhythm with no sustained dysrhythmias. The patient hadno significant periodic limb movements during the entire study. IMPRESSION: 1. The diagnostic study shows evidence of severe obstructive sleep apnea with an apnea-hypopnea index of 45, the events being clearly worse inthe supine position where the apnea-hypopnea index was 64. 2. The continuous positive airway pressure titration study is optimal.A CPAP pressure of 11 cm is clearly therapeutic for this patient'ssleep apnea including in supine REM sleep. CPAP tolerance was quite good.The patient also did well at the preceding pressure of 10 cm. RECOMMENDATION: 1. Initiate CPAP at a pressure of 11 cm which should be used during all sleep periods. In the lab the patient utilized a ResMed MirageQuattro full-face mask of small size. 2. The patient should be followed closely to ensure CPAP compliance, aswell as to assess response to therapy. 3. Care should be exercised in driving and operating machinery until the patient's daytime symptoms are improved with therapy. 4. Weight loss should be recommended. 5. Other treatment options for severe sleep apnea, if the patient cannot tolerate CPAP, include oral dental appliance, as well as ENTsurgery. DICTATOR: Manojpal S. Dahuja, M.D. MSD/MODL #:[id number] Galilea Billings M.D. : Galilea Billings MD [facility] ORDERAB LES Performing Organization Address City/[facility] Co de Phone Number [facility] * CLOSTRIDIUM DIFFICILE TOXIN (10/01/2010 5:57 AM DRY MILL WORKER) C difficile Toxin A + B Negative Negative [facility] STOOL SPECIMEN / Unknown 10/01/2010 5:57 AM DRY MILL WORKER 10/01/2010 5:57 AM DRY MILL WORKER Willy Aj DO LAB - MICROBIOLOGY ORDERABLES Performing Organization Address City/[facility] Co de Phone Number [facility] [address] [place] [address] * WBC SMEAR (10/01/2010 5:57 AM DRY MILL WORKER) WBC Feces No PMN /LPF [facility] STOOL SPECIMEN / Unknown 10/01/2010 5:57 AM DRY MILL WORKER 10/01/2010 5:57 AM DRY MILL WORKER Willy Aj DO LAB - MICROBIOLOGY ORDERABLES Performing Organization Address [facility] Co de Phone Number [facility] [address] [place] [address] * O+P ANTIGEN PANEL (10/01/2010 5:57 AM DRY MILL WORKER) Giardia Antigen Feces NEGATIVE [facility] Cryptosporidium Antigen Feces NEGATIVE [facility] Entamoeba histolytica Antigen NEGATIVE [facility] Comment Parasite Antigen 10/01 1401 [facility] Additional Comment [id number] [facility] STOOL SPECIMEN / Unknown 10/01/2010 5:57 AM DRY MILL WORKER 10/01/2010 5:57 AM DRY MILL WORKER Narrative Resulting Agency Comment Performed By [facility] - [facility] [address] [place] [id number] Willy Aj DO LAB - MICROBIOLOGY ORDERABLES Performing Organization Address [facility] de Phone Number [facility] [address] [place] [address] * CULTURE STOOL PANEL (10/01/2010 5:57 AM DRY MILL WORKER) Result [facility] Comment: Final Shiga Toxin - Negative CULTURE No Salmonella, Shigella, Campylobacter or E coli 0157-H7 isolated. STOOL SPECIMEN / Unknown 10/01/2010 5:57 AM DRY MILL WORKER 10/01/2010 5:57 AM DRY MILL WORKER Narrative Resulting Agency Comment Performed By [facility];[address] [place] [address];[place] [address] Willy Aj LAB - MICROBIOLOGY ORDERABLES Performing Organization Address [facility] de Phone Number [facility] [id number] [place] [id number] * LACTIC ACID BLOOD (10/01/2010 5:45 AM DRY MILL WORKER) Lactic Acid 0.7 0.7 - 2.1 mmol/L [facility] BLOOD SPECIMEN / Unknown 10/01/2010 5:45 AM DRY MILL WORKER 10/01/2010 5:45 AM DRY MILL WORKER Willy Palomino Sheltonmgjavi TORO LAB - CHEMISTRY OR DERABLES Performing Organization Address [facility] de Phone Number [facility] [id number] [place] [id number] * XR ABD OBSTR SERIES W/PA CHEST (10/01/2010 5:16 AM DRY MILL WORKER) Anatomical Region Laterality Modality Abdomen Radiographic Alba ging 10/01/2010 7:39 AM DRY MILL WORKER Impressions 10/01/2010 7:42 AM DRY MILL WORKER AIR-FLUID LEVELS IN THE COLON ARE CONSISTENT WITH DIARRHEA. THERE IS NO EVIDENCE OF MECHANICAL BOWEL OBSTRUCTION. NO ACUTE-APPEARING CARDIAC OR PULMONARY ABNORMALITY IS PRESENT. Narrative 10/01/2010 7:42 AM DRY MILL WORKER ABDOMEN OBSTRUCTIVE SERIES WITH PA CHEST INDICATION: Abdominal pain. Diarrhea. FINDINGS: Supine and upright views of the abdomen demonstrate a benign bowel gas pattern. There is no evidence of ileus, obstruction, or free intraperitoneal air. Air-fluid levels are present within the colon consistent with diarrhea. This is nonspecific in etiology. The visualized bony structures are without significant abnormality. A single view of the chest demonstrates cardiac size within normal limits. There is no pulmonary consolidation, pulmonary edema, or pleural effusion. Procedure Note Galilea Blanco MD - 10/01/2010 ABDOMEN OBSTRUCTIVE SERIES WITH PA CHEST INDICATION: Abdominal pain. Diarrhea. FINDINGS: Supine and upright views of the abdomen demonstrate a benign bowel gas pattern. There is no evidence of ileus, obstruction, or free intraperitoneal air. Air-fluid levels are present within the colon consistent with diarrhea. This is nonspecific in etiology. The visualized bony structures are without significant abnormality. A single view of the chest demonstrates cardiac size within normal limits. There is no pulmonary consolidation, pulmonary edema, or pleural effusion. IMPRESSION AIR-FLUID LEVELS IN THE COLON ARE CONSISTENT WITH DIARRHEA. THERE IS NO EVIDENCE OF MECHANICAL BOWEL OBSTRUCTION. NO ACUTE-APPEARING CARDIAC OR PULMONARY ABNORMALITY IS PRESENT. Willy Aj DO DIAGNOSTIC IMAGING ORDERABLES Care Teams Vocational Rehabilitation Counselor Relationship Specialty Start Date End Date Henry Pidera DO [address] [place] [address] [address] [place] [address] PCP - General Family Medicine 12/29/17
--- OUTSIDE RECORDS SUMMARY | 2024-10-20 17:59 | XMS_ITS | Clinical Summary ---
Author Organization [facility] [employer] Address [address] [place] [address] Care Team Providers Care County Administrator Name Role Phone Henry Piedra DO Primary Care Provider [phone] [facility] [employer],non-owned Affiliates and Associated Physician Practices is amultiple site organization consisting of ambulatory clinics and hospital sitesin [place], [place], [place] and [place]. This disclosure is being madepursuant to the Care Everywhere program and may not contain all information available regarding this patient. Last updated 18.[facility] [employer] Allergies No known active allergies Medications * Be aware that medications may not be up to date on this document. Alwaysverify current medications with the patient. Medication Sig Dispensed Refills Start Date End Date Status insulin glargine (LANTUS) pen Inject 20 Units subcutaneously daily with dinner 1 Box 1 09/25/2017 Active simvastatin (ZOCOR) 20 MG tablet Take 1 (one) tablet by mouth at bedtime 03/16/2018 Active valsartan (DIOVAN) 80 MG tablet Take 1 (one) tablet by mouth once daily 03/16/2018 Active gabapentin (NEURONTIN) 100 MG capsule 1 (one) capsule 2 times daily 03/16/2018 Active sildenafil (REVATIO) 20 MG tablet Take 1 tablet by mouth as directed Take one (20 mg) to five (100 mg) tablets as needed up to one time daily. 90 tablet 3 07/28/2019 Active polyethylene glycol 3350 (MIRALAX) 17 GM/SCOOP powder Take 17 (seventeen) g by mouth once daily 238 g 11/13/2021 Active folic acid (Folvite) 1 MG tablet Take 1 (one) tablet by mouth once daily 30 tablet 1 09/13/2023 Active thiamine (Vitamin B-1) 100 MG tablet Take 1 (one) tablet by mouth once daily 30 tablet 1 09/13/2023 Active butalbital-acetam inophen-caffeine (Fioricet) 50-325-40 MG tablet Take 1 (one) tablet by mouth every 6 hours as needed for Headache or Migraine 15 tablet 09/13/2023 Active pantoprazole EC (Protonix) 40 MG tablet Take 1 (one) tablet by mouth 2 times daily 60 tablet 12/05/2023 Active Tresiba FlexTouch 100 UNIT/ML pen at bedtime 05/28/2024 Active Active Problems Problem Noted Date Diagnosed Date [...] generalized 10/06/2017 09/13/2023 Urinary retention 10/06/2017 03/28/2019 Encounters Date Type Department Care Team Description 09/26/2024 12:14 AM ACID CRANE OPERATOR - 09/26/2024 5:15 AM [facility] Emergency ER at [place] [id number] Mark Li MD Chest pain, unspecified type (Primary Dx); Hypertension, unspecified type; PINO (dyspnea on exertion); Tobacco use; Hyperglycemia due to diabetes mellitus (HCC) Discharge Disposition: Home or Self Care 09/26/2024 Travel from Last 3 Months Family History Medical History Relation Name Comments Alzheimer's Disease Father Alzheimer's Disease Mother CVA Mother Cancer - Breast Mother Diabetes - Type 2 Mother Hypertension Mother Cancer - Breast Sister Relation Name Status Comments Father Mother Alive Sister Alive Social History Tobacco Use Types Packs/Day Years [...] care, and heating? Not very hard 12/03/2023 [facility] Occup[facility] ional [facility] - Occupational Stress [...] place to sleep or slept in a penitentiary (including now)? No 12/03/2023 Sex and Gender Information Value Date Recorded Sex Assigned at Not on file Gender Identity Not on file Sexual Orientation Not on file Last Filed Vital Signs Vital Sign Reading Time Taken Comments Blood Pressure 131/95 09/26/2024 4:48 AM ACID CRANE OPERATOR Pulse 83 09/26/2024 4:48 AM ACID CRANE OPERATOR Temperature 36.3 C (97.4 F) 09/26/2024 4:48 AM ACID CRANE OPERATOR Respiratory Rate 18 09/26/2024 4:48 AM ACID CRANE OPERATOR Oxygen Saturation 95% 09/26/2024 4:48 AM ACID CRANE OPERATOR Inhaled Oxygen Concentration - - Weight 94.8 kg (209 lb) 07/13/2024 8:55 AM ACID CRANE OPERATOR Height 180.3 cm (5' 11 ) 07/13/2024 8:55 AM ACID CRANE OPERATOR Body Mass Index 29.15 07/13/2024 8:55 AM ACID CRANE OPERATOR Plan of Treatment Health Maintenance Due Date Last Done Comments COLOGUARD (AGES 45-75) - COLON CA SCREENING [address] COLONOGRAPHY - COLON CA SCREENING 1964 FIT - COLON CA SCREENING 1964 FLEX SIG - COLON CA SCREENING 1964 DTAP/TDAP/TD VACCINES (1 - Tdap) 1983 PNEUMOCOCCAL VACCINE 50+ (1 of 2 - PCV) 1983 ZOSTER VACCINE (1 of 2) 2014 COVID-19 VACCINE (5 - season) 2024 08/28/2022, 08/27/2021, 12/28/2020, Additional history exists INFLUENZA VACCINE (#1) 2024 Respiratory Syncytial Virus (RSV) Vaccine Pt: or over 60 yrs (1 - Risk 60-74 years 1-dose series) 2024 DEPRESSION SCREENING 09/01/2024 SCREENING FOR DIABETES 09/26/2027 , 06/28/2024, 06/28/2024, Additional history exists COLONOSCOPY - COLON CA SCREENING 03/20/2033 03/20/2023 Colorectal Cancer Screening 03/20/2033 HEPATITIS C SCREENING Completed 11/13/2021 HIV SCREENING Completed 11/13/2021 HEPATITIS B VACCINE Aged Out No longe r eligible based on patient's age to complete this topic HIB VACCINE Aged Out No longer eligi ble based on patient's age to complete this topic HPV VACCINE Aged Out No longer eligi ble based on patient's age to complete this topic MENINGOCOCCAL (Group B) VACCINE Aged Out No longer eligible based on patient's age to complete this topic MENINGOCOCCAL VACCINE Aged Out No faby timoteo eligible based on patient's age to complete this topic Medical Devices Implanted Type Area Lime Spreader Device Identifier Shelf Expiration Date Model / Serial / Lot Mesh Srg Progrip [id number] Slf Fx Rt 70% Implanted:Qty: 1 on 09/03/2019 by Erendira Orozco DO at [facility] Right: Inguinal [employer] 02/28/2022 [id number] / / [id number] Description:RINSED WITH STER ILE WATER. LOT #[id number], EXP 05/23 Plug Srg 1.3in Groin Mfl Nabsb Prfx Implanted:Qty: 1 on 06/28/2024 by Mario Sarah MD at [facility] N/A: Abdomen [employer] 06/28/2027 [id number] / / [id number] Procedures Procedure Name Priority Date/Time Associated Diagnosis Comments CARDIAC EKG ORDER 09/27/2024 8:0 1 PM ACID CRANE OPERATOR TROPONIN-I HIGH SENSITIVE REFLEX 1HOUR Timed 09/26/2024 2:32 AM ACID CRANE OPERATOR MAGNESIUM BLOOD STAT 09/26/2024 1:18 AM ACID CRANE OPERATOR TROPONIN-I HIGH SENSITIVE BASELINE + 1HR STAT 09/26/2024 1:18 AM ACID CRANE OPERATOR COMPREHENSIVE METABOLIC PANEL STAT 09/26/2024 1:18 AM ACID CRANE OPERATOR CBC W AUTO DIFFERENTIAL STAT 09/26/2024 1:18 AM ACID CRANE OPERATOR XR CHEST 1VW STAT 09/26/2024 12:52 AM ACID CRANE OPERATOR Chest pain, unspecified type EKG 12-LEAD STAT 09/26/2024 12:28 AM ACID CRANE OPERATOR Chest pain, unspecified type HEPATITIS C ANTIBODY STAT 11/13/2021 6:35 PM CDT HIV-1 HIV-2 ANTIBODY + HIV P24 AG PANEL STAT 11/13/2021 6:35 PM CDT from Last 3 Months or Most Recently Relevant to Health Maintenance Results * CARDIAC EKG ORDER (09/27/2024 8:01 PM ACID CRANE OPERATOR) Narrative 09/27/2024 8:01 PM ACID CRANE OPERATOR Ordered by an unspecified provider. Scanned Document CARDIAC SERVICES ORD ERABLES * TROPONIN-I HIGH SENSITIVE REFLEX 1HOUR (09/26/2024 2:32 AM ACID CRANE OPERATOR) Troponin I High Sensitive 13 <=35 ng/L 09/26/2024 3:12 AM ACID CRANE OPERATOR [facility] Delta Troponin I HS 1 <6 ng/L 09/26/2024 3:12 AM ACID CRANE OPERATOR [facility] Blood BLOOD SPECIMEN / Unknown Venipuncture / Unknown 09/26/2024 2:32 AM ACID CRANE OPERATOR 09/26/2024 2:46 AM ACID CRANE OPERATOR [email or web address] LAB - CHEMISTRY ORDE BOONE Performing Organization Address City/[facility]/ZIP Co de Phone Number [facility] [id number] [place] [id number] * TROPONIN-I HIGH SENSITIVE BASELINE + 1HR (09/26/2024 1:18 AM ACID CRANE OPERATOR) Pathologist [facility] Troponin I High Sensitive 12 <=35 ng/L 09/26/2024 1:52 AM ACID CRANE OPERATOR [facility] Blood BLOOD SPECIMEN / Unknown Venipuncture / Unknown 09/26/2024 1:18 AM ACID CRANE OPERATOR 09/26/2024 1:27 AM ACID CRANE OPERATOR [employer] LAB - CHEMISTRY ORDE [employer] Performing Organization Address City/[facility]/ZIP Co de Phone Number [facility] [address] [place] [address] * (ABNORMAL) CBC W AUTO DIFFERENTIAL (09/26/2024 1:18 AM ACID CRANE OPERATOR) Pathologist [facility] WBC 6.7 4.0 - 10.7 x10E9/L 09/26/2024 1:30 AM ACID CRANE OPERATOR [facility] RBC Count 4.17(L) 4.30 - 5.80 x10E12/L 09/26/2024 1:30 AM [facility] Hemoglobin 13.2(L) 13.3 - 17.5 g/dL 09/26/2024 1:30 AM [facility] Hematocrit 40.7 38.7 - 51.1 % 09/26/2024 1:30 AM [facility] MCV 97.6 80.0 - 98.0 fL 09/26/2024 1:30 AM [facility] MCH 31.7 26.7 - 33.6 pg 09/26/2024 1:30 AM [facility] MCHC 32.4 31.7 - 36.3 g/dL 09/26/2024 1:30 AM [facility] RDW-CV 12.1 11.3 - 14.8 % 09/26/2024 1:30 AM [facility] Platelet Count 195 150 - 420 x10E9/L 09/26/2024 1:30 AM [facility] MPV 10.8 7.8 - 11.4 fL 09/26/2024 1:30 AM [facility] Neutrophil % 57.0 41.0 - 74.0 % 09/26/2024 1:30 AM [facility] Lymphocyte % 32.4 17.0 - 47.0 % 09/26/2024 1:30 AM [facility] Monocyte % 6.0 3.0 - 11.0 % 09/26/2024 1:30 AM [facility] Eosinophil % 3.9 0.0 - 7.0 % 09/26/2024 1:30 AM [facility] Basophil % 0.6 0.0 - 1.6 % 09/26/2024 1:30 AM [facility] Immature Granulocytes % 0.1 0.0 - 1.0 % 09/26/2024 1:30 AM [facility] Neutrophil Absolute 3.81 1.60 - 7.50 x10E9/L 09/26/2024 1:30 AM [facility] Lymphocyte Absolute 2.17 1.00 - 4.40 x10E9/L 09/26/2024 1:30 AM [facility] Monocyte Absolute 0.40 0.15 - 1.00 x10E9/L 09/26/2024 1:30 AM [facility] Eosinophil Absolute 0.26 0.00 - 0.60 x10E9/L 09/26/2024 1:30 AM [facility] Basophil Absolute 0.04 0.00 - 0.13 x10E9/L 09/26/2024 1:30 AM [facility] Blood BLOOD SPECIMEN / Unknown Venipuncture / Unknown 09/26/2024 1:18 AM ACID CRANE OPERATOR 09/26/2024 1:27 AM [facility] Starla Foote PA-C LAB - HEMATOLOGY ORD ERABLES [facility] [address] [place] [address] * (ABNORMAL) COMPREHENSIVE METABOLIC PANEL (09/26/2024 1:18 AM [facility]) Glucose 277(H) 70 - 99 mg/dL 09/26/2024 2:02 AM [facility] Sodium 138 136 - 145 mmol/L 09/26/2024 2:02 AM [facility] Potassium 4.4 3.5 - 5.1 mmol/L 09/26/2024 2:02 AM [facility] Chloride 105 98 - 107 mmol/L 09/26/2024 2:02 AM [facility] CO2 21(L) 22 - 29 mmol/L 09/26/2024 2:02 AM [facility] Calcium 9.3 8.4 - 10.4 mg/dL 09/26/2024 2:02 AM [facility] Anion Gap 12 6 - 16 mmol/L 09/26/2024 2:02 AM [facility] BUN 15 7 - 26 mg/dL 09/26/2024 2:02 AM [facility] Creatinine 1.17 0.72 - 1.25 mg/dL 09/26/2024 2:02 AM [facility] Alkaline Phosphatase 89 40 - 150 U/L 09/26/2024 2:02 AM [facility] ALT 27 0 - 55 U/L 09/26/2024 2:02 AM [facility] AST 29 5 - 34 U/L 09/26/2024 2:02 AM [facility] Protein Total 7.4 6.4 - 8.3 gm/dL 09/26/2024 2:02 AM ACID CRANE OPERATOR [facility] Albumin 3.9 3.4 - 5.0 gm/dL 09/26/2024 2:02 AM ACID CRANE OPERATOR [facility] Bilirubin Total 0.4 0.2 - 1.2 mg/dL 09/26/2024 2:02 AM ACID CRANE OPERATOR [facility] eGFR by CKD-EPI 71(L) >=90 mL/min/1.7 3 m2 09/26/2024 2:02 AM ACID CRANE OPERATOR [facility] Blood BLOOD SPECIMEN / Unknown Venipuncture / Unknown 09/26/2024 1:18 AM ACID CRANE OPERATOR 09/26/2024 1:27 AM ACID CRANE OPERATOR Starla Groos PA-C LAB - CHEMISTRY ORDE BOONE Performing Organization Address [facility] Co de Phone Number [facility] [address] [place] [address] * MAGNESIUM BLOOD (09/26/2024 1:18 AM ACID CRANE OPERATOR) Magnesium 1.9 1.6 - 2.6 mg/dL 09/26/2024 2:02 AM ACID CRANE OPERATOR [facility] Blood BLOOD SPECIMEN / Unknown Venipuncture / Unknown 09/26/2024 1:18 AM ACID CRANE OPERATOR 09/26/2024 1:27 AM ACID CRANE OPERATOR Starla [employer] PA-C LAB - CHEMISTRY ORDE BOONE Performing Organization Address [facility] Co de Phone Number [facility] [address] [place] [address] * XR CHEST PA OR AP (1VW ONLY, THIS IS NOT PORTABLE) (09/26/2024 12:52 AM ACID CRANE OPERATOR) Anatomical Region Laterality Modality Chest Computed Radiogr aphy 09/26/2024 9:34 AM ACID CRANE OPERATOR Impressions 09/26/2024 9:35 AM ACID CRANE OPERATOR IMPRESSION: Hypoventilatory changes in the lung bases, without confluency. > Interpreting Provider: Ross Griffith MD on 09/26/2024 9:35 AM Narrative 09/26/2024 9:35 AM ACID CRANE OPERATOR PROCEDURE: XR CHEST 1VW, DATE/TIME OF EXAM: 09/26/2024 12:52 AM, LOCATION [facility] INDICATION: R07.9: Chest pain, unspecified ADDITIONAL CLINICAL [...] DATE/TIME OF EXAM: 09/26/2024 12:52 AM, LOCATION [facility] INDICATION: R07.9: Chest pain, unspecified ADDITIONAL CLINICAL [...] Griffith MD on 09/26/2024 9:35 AM Starla Groos PA-C DIAGNOSTIC IMAGING O RDERABLES * EKG 12-LEAD (09/26/2024 12:28 AM ACID CRANE OPERATOR) Ventricular Rate 86 BPM [facility] Atrial Rate 86 BPM [facility] P-R Interval 166 ms [facility] QRS Duration ms 86 ms [facility] Q-T Interval ms 362 ms [facility] QTC Calculation (Bezet) 433 ms [facility] Calculated P Tatamy 61 degrees [facility] Calculated R Tatamy 25 degrees [facility] Calculated T Tatamy 43 degrees [facility] Interpretation EKG Normal sinus rhythm Normal ECG When compared with ECG of 02-DEC-2023 13:45, Nonspecific T wave abnormality , improved in Lateral leads Confirmed by NELSON SHRESTHA MD ([id number]) on 09/27/2024 9:32:03 AM [facility] MUSE 09/26/2024 12:2 8 AM ACID CRANE OPERATOR 09/27/2024 9:32 AM ACID CRANE OPERATOR Mark Li MD ECG ORDERABLES Performing Organization Address City/[facility]/ZIP Co de Phone Number [facility] MUSE * HIV-1 HIV-2 ANTIBODY + HIV P24 AG PANEL (11/13/2021 6:35 PM CDT) Pathologist [facility] HIV1/2 Ab + P24 Ag Non Reactive Non Reactive 11/13/2021 7:30 PM CDT [facility] Blood BLOOD SPECIMEN / Unknown Venipuncture / Unknown 11/13/2021 6:35 PM CDT 11/13/2021 6:51 PM CDT Narrative [facility] - 11/13/2021 7:30 PM CDT No Laboratory evidence of HIV infection. Edward House DO LAB - CHEMISTRY NAHID SHOOK [facility] [address] [place] [address] * HEPATITIS C ANTIBODY (11/13/2021 6:35 PM CDT) Pathologist [facility] HCV Antibody Screen Non Reactive Non Reactive 11/13/2021 7:32 PM CDT [facility] Blood BLOOD SPECIMEN / Unknown Venipuncture / Unknown 11/13/2021 6:35 PM CDT 11/13/2021 6:51 PM CDT Narrative [facility] - 11/13/2021 7:32 PM CDT Non Reactive - Antibodies to Hepatitis C virus (HCV) were not detected, result does not exclude early acute HCV infection. Edward House DO LAB - CHEMISTRY NAHID SHOOK [facility] [address] [place] [address] from Last 3 Months or Most Recently Relevant to Health Maintenance Advance Directives * Full Code (Latest Code Status on File) Date Activated Date Inactivated Comments 12/02/2023 9:09 PM 12/05/2023 6:44 PM * Full Code Date Activated Date Inactivated Comments 09/11/2023 3:49 AM 09/13/2023 5:26 PM * Full Code Date Activated Date Inactivated Comments 03/24/2019 4:41 PM 03/28/2019 11:42 AM * Full Code Date Activated Date Inactivated Comments 10/06/2017 4:55 AM 10/10/2017 6:56 PM * Full Code Date Activated Date Inactivated Comments 09/20/2017 4:33 AM 09/25/2017 1:07 PM Care Teams County Administrator Relationship Specialty Start Date End Date Henry Piedra DO [address] [facility] [address] [place] [address] PCP - General Family Medicine 12/29/17
--- OUTSIDE RECORDS SUMMARY | 2024-10-20 17:59 | XMS_ITS | Clinical Summary ---
Author Organization [facility] Address [address] [place] [address] Phone Care Team Providers Care Mixing Roll Operator Name Role Phone Unavailable Primary Care Provider Unavailabl e Allergies No known active allergies Medications aspirin (TAMICA) 81 mg Oral TabIndications:H yperlipidemia Take 4 Tabs by mouth daily. 30 Tab 0 11/17/2012 Active simvastatin (ZOCOR) 40 mg Oral tablet Take 1 Tab by mouth Daily LATE. 30 Tab 1 12/11/2012 Active Active Problems Problem Noted Date Diagnosed Date Hyperlipidemia 12/14/2012 Alcoholism /alcohol abuse 10/10/2012 Sleep disturbance 10/10/2012 Tobacco use disorder 10/10/2012 Overview (10/10/2012): Smoker - cigarettes Family History Medical History Relation Name Comments Asthma Mother Hypertension Mother Diabetes Other Uncle Alzheimer's Disease Paternal Grandmother Relation Name Status Comments Mother Other Uncle Alive Paternal Grandmother Social History Tobacco Use Types Packs/Day Years Used Date Smoking Tobacco: Every Day Cigarettes 0.5 33 Smokeless Tobacco: Never Tobacco Cessation:Ready to Q uit: Yes Comments:Drinking leads to smoking Alcohol Use Standard Drinks/Week Comments Yes 59 (1 standard drink = 0.6 oz pure alcohol) Drinks 3-4 large beers a day and drinks 2 shots of Hennesy a day. 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[employer] Gender Identity Not on file Sexual Orientation Not on file Occupation Industry Job Start Date Job End Date Not on file Not on file Not on file Not on file Last Filed Vital Signs Vital Sign Reading Time Taken Comments Blood Pressure 120/80 12/11/2012 4:28 PM CDT Pulse 76 12/11/2012 4:28 PM CDT Temperature - - Respiratory Rate - - Oxygen Saturation - - Inhaled Oxygen Concentration - - Weight 101.2 kg (223 lb) 12/11/2012 4:28 PM CDT Height 177.8 cm (5' 10 ) 12/11/2012 4:28 PM CDT Body Mass Index 32 12/11/2012 4:28 PM CDT Plan of Treatment Health Maintenance Due Date Last Done Comments DTAP/TDAP/TD VACCINES (1 - Tdap) 1983 COLORECTAL SCREENING 2009 Colorectal Cancer Screening 2009 FIT-DNA Q 3 years 2009 FIT/FOBT Q 1 year 2009 Flex Sig/CT Colonography Q 5 years 2009 ZOSTER VACCINE (1 of 2) 2014 INFLUENZA VACCINE (#1) 2024 RSV VACCINE (60+ or ) (1 - 1-dose 75+ series) 2039 HEPATITIS B VACCINES Aged Out No long er eligible based on patient's age to complete this topic Insurance BS BLUE ACCESS/TRUE BLUE PPO
--- OUTSIDE RECORDS SUMMARY | 2024-10-20 17:59 | XMS_ITS | Encounter Summary ---
Author Organization [facility] Address [address] [place] [address] Care Team Providers Care Neurology Hospitalist Name Role Phone Henry Piedra DO Primary Care Provider [phone] Encounter Details Date Type Department Care Team (Late st Contact Info) Description 08/17/2019 [facility] Outpatient Visit [facility] [address] [place] [address] [place] [address] [address] Social History Tobacco Use Types Packs/Day Years Used Date Smoking Tobacco: Every Day Cigarettes Smokeless Tobacco: Former Alcohol Use Standard Drinks/Week Comments Yes 0 (1 standard drink = 0.6 oz pur e alcohol) 2-3 beers a day Sex and Gender Information Value Date Recorded Sex Assigned at Not on file Gender Identity Not on file Sexual Orientation Not on file documented as of this encounter Functional Status Functional Status Response Date of Assess ment Is person deaf or have serious hearing difficult y? No 03/24/2019 Is person blind or have serious difficulty seein g? No 03/24/2019 Does person have serious dif ficulty walking/climbing stairs? No 03/24/2019 Does person have difficulty dressing/bathing? No 03/24/2019 Does person have difficulty doing errands alone? No 03/24/2019 Cognitive Status Response Date of Assessm ent Does person have difficulty concentrating/remembering/making decisions? No 03/24/2019 documented as of this encounter Plan of Treatment Not on file documented as of this encounter Visit Diagnoses Not on filedocumented in this encounter Care Teams Neurology Hospitalist Relationship Specialty Start Date End Date Henry Piedra DO [address] [facility] [address] [place] [address] PCP - General Family Medicine 12/29/17 documented as of this encounter
--- OUTSIDE RECORDS SUMMARY | 2024-10-20 17:59 | XMS_ITS | Referral Summary ---
Author Organization [facility] Address [address] [place] [address] Care Team Providers Care Adoption Social Worker Name Role Phone Henry Piedra DO Primary Care Provider [phone] Source Comments [facility],non-owned Affiliates and Associated Physician Practices is amultiple site organization consisting of ambulatory clinics and hospital sitesin [place], [place], [place] and [place]. This disclosure is being madepursuant to the Care Everywhere program and may not contain all information available regarding this patient. Last updated 18.[facility] Encounters Date Type Department Care Team Description 09/26/2024 Travel 09/26/2024 12:14 AM BUSINESS OFFICE REPRESENTATIVE - 09/26/2024 5:15 AM BUSINESS OFFICE REPRESENTATIVE Emergency ER at [address] [address] Mark Li MD Chest pain, unspecified type (Primary Dx); Hypertension, unspecified type; PINO (dyspnea on exertion); Tobacco use; Hyperglycemia due to diabetes mellitus (HCC) Discharge Disposition: Home or Self Care from Last 3 Months Allergies No known active allergies Medications * [...] care, and heating? Not very hard 12/03/2023 [facility] - Occupational Stress [...] Comments Blood Pressure 131/95 09/26/2024 4:48 AM BUSINESS OFFICE REPRESENTATIVE Pulse 83 09/26/2024 4:48 AM BUSINESS OFFICE REPRESENTATIVE Temperature 36.3 C (97.4 F) 09/26/2024 4:48 AM BUSINESS OFFICE REPRESENTATIVE Respiratory Rate 18 09/26/2024 4:48 AM BUSINESS OFFICE REPRESENTATIVE Oxygen Saturation 95% 09/26/2024 4:48 AM BUSINESS OFFICE REPRESENTATIVE Inhaled Oxygen Concentration - - Weight 94.8 kg (209 lb) 07/13/2024 8:55 AM BUSINESS OFFICE REPRESENTATIVE Height 180.3 cm (5' 11 ) 07/13/2024 8:55 AM BUSINESS OFFICE REPRESENTATIVE Body Mass Index 29.15 07/13/2024 8:55 AM BUSINESS OFFICE REPRESENTATIVE Functional Status Functional Status Response Date of [...] person have difficulty concentrating/remembering/making decisions? No 03/24/2019 Plan of Treatment Not on file Medical Devices Implanted Type Area C.O.D. Clerk Device Identifier Shelf Expiration Date Model / Serial / Lot Mesh Srg Progrip [id number] Slf Fx Rt 70% Implanted:Qty: 1 on 09/03/2019 by Erendira Orozco DO at [facility] Right: Inguinal [employer] 02/28/2022 [id number] / / [id number] Description:RINSED WITH STER ILE WATER. LOT #[id number], EXP 05/23 Plug Srg 1.3in Groin Mfl Nabsb Prfx Implanted:Qty: 1 on 06/28/2024 by Mario Sarah MD at [facility] N/A: Abdomen [employer] 06/28/2027 [id number] / / [id number] Procedures Procedure Name Priority Date/Time Associated Diagnosis Comments CARDIAC EKG ORDER 09/27/2024 8:0 1 PM BUSINESS OFFICE REPRESENTATIVE TROPONIN-I HIGH SENSITIVE REFLEX 1HOUR Timed 09/26/2024 2:32 AM BUSINESS OFFICE REPRESENTATIVE MAGNESIUM BLOOD STAT 09/26/2024 1:18 AM BUSINESS OFFICE REPRESENTATIVE TROPONIN-I HIGH SENSITIVE BASELINE + 1HR STAT 09/26/2024 1:18 AM BUSINESS OFFICE REPRESENTATIVE COMPREHENSIVE METABOLIC PANEL STAT 09/26/2024 1:18 AM BUSINESS OFFICE REPRESENTATIVE CBC W AUTO DIFFERENTIAL STAT 09/26/2024 1:18 AM BUSINESS OFFICE REPRESENTATIVE XR CHEST 1VW STAT 09/26/2024 12:52 AM BUSINESS OFFICE REPRESENTATIVE Chest pain, unspecified type EKG 12-LEAD STAT 09/26/2024 12:28 AM BUSINESS OFFICE REPRESENTATIVE Chest pain, unspecified type HEPATITIS C ANTIBODY STAT 11/13/2021 6:35 PM CDT HIV-1 HIV-2 ANTIBODY + HIV P24 AG PANEL STAT 11/13/2021 6:35 PM CDT from Last 3 Months or Most Recently Relevant to Health Maintenance Results * CARDIAC EKG ORDER (09/27/2024 8:01 PM BUSINESS OFFICE REPRESENTATIVE) Narrative 09/27/2024 8:01 PM BUSINESS OFFICE REPRESENTATIVE Ordered by an unspecified provider. Scanned Document CARDIAC SERVICES ORD ERABLES * TROPONIN-I HIGH SENSITIVE REFLEX 1HOUR (09/26/2024 2:32 AM BUSINESS OFFICE REPRESENTATIVE) Pathologist [facility] Troponin I High Sensitive 13 <=35 ng/L 09/26/2024 3:12 AM BUSINESS OFFICE REPRESENTATIVE [facility] Delta Troponin I HS 1 <6 ng/L 09/26/2024 3:12 AM BUSINESS OFFICE REPRESENTATIVE [facility] Blood BLOOD SPECIMEN / Unknown Venipuncture / Unknown 09/26/2024 2:32 AM BUSINESS OFFICE REPRESENTATIVE 09/26/2024 2:46 AM BUSINESS OFFICE REPRESENTATIVE Starla Foote PA-C LAB - CHEMISTRY ORDE BOONE [facility] [address] [place] [address] * TROPONIN-I HIGH SENSITIVE BASELINE + 1HR (09/26/2024 1:18 AM BUSINESS OFFICE REPRESENTATIVE) Pathologist [facility] Troponin I High Sensitive 12 <=35 ng/L 09/26/2024 1:52 AM [facility] Blood BLOOD SPECIMEN / Unknown Venipuncture / Unknown 09/26/2024 1:18 AM BUSINESS OFFICE REPRESENTATIVE 09/26/2024 1:27 AM BUSINESS OFFICE REPRESENTATIVE Starla Foote PA-C LAB - CHEMISTRY NAHID SHOOK [facility] Organization Address City/State/ZIP Co de Phone Number [facility] [address] [place] [address] * (ABNORMAL) CBC W AUTO DIFFERENTIAL (09/26/2024 1:18 AM BUSINESS OFFICE REPRESENTATIVE) WBC 6.7 4.0 - 10.7 x10E9/L 09/26/2024 1:30 AM [facility] RBC Count 4.17(L) 4.30 - 5.80 x10E12/L 09/26/2024 1:30 AM [facility] Hemoglobin 13.2(L) 13.3 - 17.5 g/dL 09/26/2024 1:30 AM [facility] Hematocrit 40.7 38.7 - 51.1 % 09/26/2024 1:30 AM [facility] MCV 97.6 80.0 - 98.0 fL 09/26/2024 1:30 AM [facility] MCH 31.7 26.7 - 33.6 pg 09/26/2024 1:30 AM [facility] MCHC 32.4 31.7 - 36.3 g/dL 09/26/2024 1:30 AM [facility] RDW-CV 12.1 11.3 - 14.8 % 09/26/2024 1:30 AM [facility] Platelet Count 195 150 - 420 x10E9/L 09/26/2024 1:30 AM [facility] MPV 10.8 7.8 - 11.4 fL 09/26/2024 1:30 AM [facility] Neutrophil % 57.0 41.0 - 74.0 % 09/26/2024 1:30 AM [facility] Lymphocyte % 32.4 17.0 - 47.0 % 09/26/2024 1:30 AM [facility] Monocyte % 6.0 3.0 - 11.0 % 09/26/2024 1:30 AM [facility] Eosinophil % 3.9 0.0 - 7.0 % 09/26/2024 1:30 AM [facility] Basophil % 0.6 0.0 - 1.6 % 09/26/2024 1:30 AM [facility] Immature Granulocytes % 0.1 0.0 - 1.0 % 09/26/2024 1:30 AM [facility] Neutrophil Absolute 3.81 1.60 - 7.50 x10E9/L 09/26/2024 1:30 AM [facility] Lymphocyte Absolute 2.17 1.00 - 4.40 x10E9/L 09/26/2024 1:30 AM [facility] Monocyte Absolute 0.40 0.15 - 1.00 x10E9/L 09/26/2024 1:30 AM [facility] Eosinophil Absolute 0.26 0.00 - 0.60 x10E9/L 09/26/2024 1:30 AM [facility] Basophil Absolute 0.04 0.00 - 0.13 x10E9/L 09/26/2024 1:30 AM [facility] Blood BLOOD SPECIMEN / Unknown Venipuncture / Unknown 09/26/2024 1:18 AM BUSINESS OFFICE REPRESENTATIVE 09/26/2024 1:27 AM [facility] Starla Foote PA-C LAB - HEMATOLOGY ORD ERABLES [facility] [address] [place] [address] * (ABNORMAL) COMPREHENSIVE METABOLIC PANEL (09/26/2024 1:18 AM [facility]) [facility] Glucose 277(H) 70 - 99 mg/dL 09/26/2024 2:02 AM [facility] Sodium 138 136 - 145 mmol/L 09/26/2024 2:02 AM [facility] Potassium 4.4 3.5 - 5.1 mmol/L 09/26/2024 2:02 AM [facility] Chloride 105 98 - 107 mmol/L 09/26/2024 2:02 AM [facility] CO2 21(L) 22 - 29 mmol/L 09/26/2024 2:02 AM [facility] Calcium 9.3 8.4 - 10.4 mg/dL 09/26/2024 2:02 AM [facility] Anion Gap 12 6 - 16 mmol/L 09/26/2024 2:02 AM [facility] BUN 15 7 - 26 mg/dL 09/26/2024 2:02 AM [facility] Creatinine 1.17 0.72 - 1.25 mg/dL 09/26/2024 2:02 AM [facility] Alkaline Phosphatase 89 40 - 150 U/L 09/26/2024 2:02 AM [facility] ALT 27 0 - 55 U/L 09/26/2024 2:02 AM [facility] AST 29 5 - 34 U/L 09/26/2024 2:02 AM [facility] Protein Total 7.4 6.4 - 8.3 gm/dL 09/26/2024 2:02 AM [facility] Albumin 3.9 3.4 - 5.0 gm/dL 09/26/2024 2:02 AM [facility] Bilirubin Total 0.4 0.2 - 1.2 mg/dL 09/26/2024 2:02 AM [facility] eGFR by CKD-EPI 71(L) >=90 mL/min/1.7 3 m2 09/26/2024 2:02 AM [facility] Blood BLOOD SPECIMEN / Unknown Venipuncture / Unknown 09/26/2024 1:18 AM BUSINESS OFFICE REPRESENTATIVE 09/26/2024 1:27 AM [facility] Starla Foote PA-C LAB - CHEMISTRY NAHID SHOOK [facility] [address] [place] [address] * MAGNESIUM BLOOD (09/26/2024 1:18 AM [facility]) [facility] Magnesium 1.9 1.6 - 2.6 mg/dL 09/26/2024 2:02 AM [facility] Blood BLOOD SPECIMEN / Unknown Venipuncture / Unknown 09/26/2024 1:18 AM BUSINESS OFFICE REPRESENTATIVE 09/26/2024 1:27 AM BUSINESS OFFICE REPRESENTATIVE Starla Foote PA-C LAB - CHEMISTRY ORDE BOONE [facility] [address] [place] [address] * XR CHEST PA OR AP (1VW ONLY, THIS IS NOT PORTABLE) (09/26/2024 12:52 AM BUSINESS OFFICE REPRESENTATIVE) Anatomical Region Laterality Modality Chest Computed Radiogr aphy 09/26/2024 9:34 AM BUSINESS OFFICE REPRESENTATIVE Impressions 09/26/2024 9:35 AM BUSINESS OFFICE REPRESENTATIVE IMPRESSION: Hypoventilatory changes in the lung bases, without confluency. > Interpreting Provider: Ross Griffith MD on 09/26/2024 9:35 AM Narrative 09/26/2024 9:35 AM BUSINESS OFFICE REPRESENTATIVE PROCEDURE: XR CHEST 1VW, DATE/TIME OF EXAM: 09/26/2024 12:52 AM, LOCATION [facility] INDICATION: R07.9: Chest pain, unspecified ADDITIONAL CLINICAL [...] DATE/TIME OF EXAM: 09/26/2024 12:52 AM, LOCATION [facility] INDICATION: R07.9: Chest pain, unspecified ADDITIONAL CLINICAL [...] Griffith MD on 09/26/2024 9:35 AM Starla Foote PA-C DIAGNOSTIC IMAGING O RDERABLES * EKG 12-LEAD (09/26/2024 12:28 AM BUSINESS OFFICE REPRESENTATIVE) Pathologist [facility] Ventricular Rate 86 BPM [facility] Atrial Rate 86 BPM [facility] P-R Interval 166 ms [facility] QRS Duration ms 86 ms [facility] Q-T Interval ms 362 ms [facility] QTC Calculation (Bezet) 433 ms [facility] Calculated P [place] 61 degrees [facility] Calculated R [place] 25 degrees [facility] Calculated T [place] 43 degrees [facility] Interpretation EKG Normal sinus rhythm Normal ECG When compared with ECG of 02-DEC-2023 13:45, Nonspecific T wave abnormality , improved in Lateral leads Confirmed by NELSON SHRESTHA MD ([id number]) on 09/27/2024 9:32:03 AM [facility] 09/26/2024 12:2 8 AM BUSINESS OFFICE REPRESENTATIVE 09/27/2024 9:32 AM BUSINESS OFFICE REPRESENTATIVE Mark Li MD ECG ORDERABLES [facility] * HIV-1 HIV-2 ANTIBODY + HIV P24 AG PANEL (11/13/2021 6:35 PM CDT) Pathologist [facility] HIV1/2 Ab + P24 Ag Non Reactive Non Reactive 11/13/2021 7:30 PM CDT [facility] Blood BLOOD SPECIMEN / Unknown Venipuncture / Unknown 11/13/2021 6:35 PM CDT 11/13/2021 6:51 PM CDT Narrative [facility] - 11/13/2021 7:30 PM CDT No Laboratory evidence of HIV infection. [facility] LAB - CHEMISTRY ORDE BOONE Performing Organization Address [facility]/ZIP Co de Phone Number [facility] [address] [place] [address] * HEPATITIS C ANTIBODY (11/13/2021 6:35 PM CDT) HCV Antibody Screen Non Reactive Non Reactive 11/13/2021 7:32 PM CDT [facility] Blood BLOOD SPECIMEN / Unknown Venipuncture / Unknown 11/13/2021 6:35 PM CDT 11/13/2021 6:51 PM CDT Narrative [facility] - 11/13/2021 7:32 PM CDT Non Reactive - Antibodies to Hepatitis C virus (HCV) were not detected, result does not exclude early acute HCV infection. [facility] LAB - CHEMISTRY ORDArmando SHOOK Performing Organization Address [facility] Co de Phone Number [facility] [address] [place] [address] from Last 3 Months or Most Recently [...] 4:33 AM 09/25/2017 1:07 PM Care Teams Adoption Social Worker Relationship Specialty Start Date End Date Henry Piedra DO [address] [address] PCP - General Family Medicine 12/29/17
--- OUTSIDE RECORDS SUMMARY | 2024-10-20 17:59 | XMS_ITS | Continuity of Care Document ---
Author Organization [facility] [employer] Address [address] [place] [address] Phone Care Team Providers Care Development Educator Name Role Phone Aaron COLON, Brad Unavailable Unavailable Allergies, Adverse Reactions, Alerts Substance Reaction Status Criticality No Known Allergies Active No Inform ation Medications Medication Instructions Dosage Effective Dates (start - stop) Status Comments omeprazole 20 mg capsule,delayed release take 1 capsule by oral route 2 times every day 30 minutes to 1 hour before a meal 20 MG - Active to take all together for H pylori infection amoxicillin 500 mg capsule take 2 capsule by oral route every 12 hours 1000 MG - Active clarithromycin 500 mg tablet take 1 tablet by oral route every 12 hours 500 MG - Active I ask he stop statin while on Rx gabapentin 100 mg capsule take 1 capsule by oral route 2 times every day 100 MG - Active simvastatin 20 mg tablet take 1 tablet by oral route every day in the evening 20 MG - Active valsartan 80 mg tablet take 1 tablet by oral route every day 80 MG - Active Tresiba U-100 Insulin 100 unit/mL subcutaneous solution inject by subcutaneous route as per insulin protocol 0.00 - Active Procedures Procedure Date TISSUE EXAM BY PATHOLOGIST UPPER GI ENDOSCOPY BIOPSY INITIAL INPT/OBS HOSPITAL CARE LVL 2 Nov UPPER GI ENDOSCOPY BIOPSY SCREENING COLONOSCOPY (NOT HIGH RISK) Ju OFFICE EYLYM-VAT-ERVAJEEI BODY MASS INDEX DOCD SYST BP LT 130 MM HG DIAST BP < 80 MM HG OFFICE [id number] BODY MASS INDEX DOCD SYST BP LT 130 MM HG DIAST BP >= 90 MM HG INPATIENT CONSULT, LEVEL 2 SUBSEQUENT HOSPITAL VISIT, EXPANDED Advance Directives Directive Yes / No Effective Date File Name No Information Encounters Encounter Description Practice Location Reason(s) For Visit Diagnoses Date Provider Providers Copied on Encounter [email or web address], [address], [place], [place], [id number] , [place] tel:[phone] [facility] No Information 4 B[address]. [address] [place] [address], [id number], [place]. tel:[phone] [email or web address], [address], [place], [place], [id number] , [place] tel: [phone] [facility] No Information 4 B[address] [place]. [address] [place] [address], [id number], [place]. tel:[phone] Referring Provider: Henry Piedra, [address] [place] [address], [address]. tel:[phone] [email or web address], [address], [place], [place], [id number] , [place] tel:[phone] [facility] No Information 4 Bialecki [place]. [address] [place] [address], [id number], [place]. tel:[phone] Referring Provider: Henry Piedra, [address] [place] [address], [address]. tel:[phone] [email or web address], [address] [place] [address], [id number] , tel:[phone] [facility] No Information 4 Bialecki [place]. [address] [place] [address], [id number], [place]. tel:[phone] INITIAL INPT/OBS HOSPITAL CARE LVL 2 [email or web address], [address], [place], [place], [id number] , [place] tel:[phone] [facility] No Information Nov-0 4 Aaron Salinas. [address] [place] [address], [place], [place], [id number], [place]. tel:[phone] Referring Provider: Henry Piedra, [address] [place] [address], [address]. tel:[phone] [facility], [address], [place], [place], [id number] , [place] tel:[phone] [facility] No Information 3 Pamela Hays. [address] [place] [address], [id number], [place]. tel:[phone] Referring Provider: Henry Piedra, [address] [address], [place], [address]. tel:[phone] OFFICE [id number]-[email or web address], [address], [place], [place], [id number] , [place] tel:[phone] [facility] Abnormal GI study (chief complaint) Abnormal findings on diagnostic imaging of other parts of digestive tractAlcohol-guillermo lisa chronic pancreatitisScree caitlyn for colon cancer 3 Pamela Hays. [address] [place] [address], [id number], [place]. tel:[phone] Referring Provider: Rafi Carroll, [address] [place] [address], [place], [address] . tel:[phone] OFFICE AFTPP-QVE-HL [email or web address], [address], [place], [place], [id number] , [place] tel:[phone] [facility] Abnormal GI study (chief complaint) Abdominal pain (chief complaint) Left upper quadrant painAbnormal findings on diagnostic imaging of other parts of digestive tract Nov-0 3 Pamela Hays. [address] [place], [place] [address], [place], [id number], . tel:[phone] Referring Provider: Henry Piedra, [address] [facility] [address], [place], [address]. tel:[phone] INPATIENT CONSULT, LEVEL 2 [facility], [address], [place], [place], [id number] , [place] [phone] [facility] No Information 9 Ashley Koch. [address], [place], [address], [place]. tel:[phone] Referring Provider: Henry Piedra, [address] [facility] [address], [place], [address]. tel:[phone] [facility], [address], [place], [place], [id number] , [place] [phone] [facility] Pancreatitis, alcoholic, acuteColon cancer screeningElevated cholesterol with elevated triglycerides 5 Trenton Staton. [facility] [place], [address], . tel:[phone] Referring Provider: Shemar Chowdhury, [address] [place] [address], [address]. tel:[phone] Family History Family Member Type Diagnosis Age At Onset No Information Payers Payer name Insurance type Covered alliance party ID tegan mohan(s) [facility] [id number] Social History Type Description Quantity Date Captured Comments Alcohol Use Details Unknown Caffeine Use Details Unknown Tobacco Use Status Smoking Status No Information Sex Male Chief Complaint And Reason For Visit No Information Reason For Referral Reason For Referral No Information Plan Of Treatment Date Type Action Status Referral Ordered: COLONOSCOPY, FLEXIBLE, DIAGNOSTIC W/ COLLECTION OF SPECIMEN ordered Referral Referred To: August Ramirez MD [address] [place], [phone] Ordered: Referrals: Gastroenterology. August Ramirez MD. Diagnostic testing ordered Apr-05-2023 Referral Ordered: GI ENDOSCOPIC ULTRASOUND ordered History Of Present Illness Encounter Date Complaint History Of Prese nt Illness Abnormal GI study Abnormal GI study Type of study: abdominal CT scan. Abdominal pain Comments: Pativera t seen an urgent care secondary left flank pain he had a CT scan was demonstrated a problem mass of the head of the pancreas I reviewed his outside records and reviewed with the previous hospital records from [facility] Functional Status Date Functional Assessmen t No Information Instructions Date Instruction Additional Infor mation Patients feeling wel l without complaints her nausea vomiting or diarrhea constipation I discussed results the patient's endoscopic ultrasound he will continue his current therapy and follow-up as needed Related to Abnormal findings on diagnostic imaging of other parts of digestive tract Because the patient CT scan will center for endoscopic ultrasound further recommendations will be pending Related to Abnormal findings on diagnostic imaging of other parts of digestive tract Weight loss Assessments Type Assessment Date No Information Patient Care Teams Name Effective Dates (start - stop) Status Members No Information
[2024-10-20 18:42] VITALS: BP 114/80; PULSE 81; RESP 15; O2SAT 97
[2024-10-20 18:44] VITALS: PULSE 79
[2024-10-20 18:48] LABS: D Dimer 0.31 ug/mL (<0.48)
== END 2024-10-20 19:20 | disposition home or self-care (01) ==
PROVIDERS: Emergency Medicine; Physician Assistant; Emergency Provider Physician Assistant
DX: R07.1 Chest pain on breathing (principal); I10 Essential (primary) hypertension; E11.9 Type 2 diabetes mellitus without complications; E78.5 Hyperlipidemia, unspecified; F17.200 Nicotine dependence, unspecified, uncomplicated; R94.31 Abnormal electrocardiogram [ECG] [EKG]
CPT/HCPCS: 36415; 71046; 80053; 83690; 84484; 85025; 85380; 85610; 85730; 93005; 99284